=== PATIENT | male | born 1945 | race Caucasian/White ===

== ENCOUNTER 2016-12-23 13:07 | Inpatient (IN) | payer OTHER, MEDICARE ==
[~2016-12-23] VITALS: Ht 180.3 cm; Wt 96.9 kg
[2016-12-23] VITALS (7 sets, daily range): BP systolic 138–169; BP diastolic 61–79; PULSE 71–77; RESP 20; TEMP 101
[2016-12-23] MEDS ORDERED: ASPIRIN 81 MG TAB PO STA (13:11)
[2016-12-23] MEDS ORDERED: NITROGLYCERIN 2% 1 GM OINT PKT TD STA (13:11)
[2016-12-23] MEDS ORDERED: morphine 4 MG/ML VIAL IV STA (13:11)
[2016-12-23] MEDS ORDERED: ONDANSETRON 4 MG INJ IV STA ×2 (13:11→14:21)
[2016-12-23] MEDS ORDERED: NITROGLYCERIN (SL) 0.4 MG TAB SL PRN (13:30)
--- NOTE | 2016-12-23 13:56 | RADRPT ---
PROCEDURE: XR Chest. CLINICAL INDICATION: Chest pain TECHNIQUE: Single frontal view of the chest was obtained COMPARISON: None FINDINGS: The heart is enlarged. The thoracic aorta is calcified. There is mild pulmonary vascular congestion. There is no pleural effusion or pneumothorax. RPTAT: AA IMPRESSION: Moderate cardiomegaly. Mild pulmonary vascular congestion. Calcified aorta consistent with atherosclerotic disease. .Jerardo Montaño MD, MD Date Time Electronically viewed and signed by .Jerardo Montaño MD, on 12/23/2016 13:55 .S/
--- NOTE | 2016-12-23 14:01 | RADRPT ---
PROCEDURE: XR Left humerus CLINICAL INDICATION: Pain TECHNIQUE: Two AP radiographs of the left humerus were submitted COMPARISON: None FINDINGS: Osseous structures: The osseous elements appear rarefied but intact with no fracture or destructive process evident. Joint spaces: are well maintained with no significant erosion or spurring evident. There is no sig nificant joint effusion Soft tissues: Multiple gt are seen within the soft tissues at the medial distal upper arm. IMPRESSION: 1. Osteoporosis with no fracture or osseous destruction evident. 2. Multiple gt are seen within the medial distal soft tissues of the upper arm. Physician Jonn Date Time Electronically viewed and signed by Physician Jonn on 12/23/2016 14:01 /
[2016-12-23 14:03] LABS: ADD SCAN DIFF NO
[2016-12-23 14:05] LABS: ABNORMAL IP MESSAGE 1; BASOPHILS % 0.3 % (0.0-2.0); EOSINOPHILS # 0.1 10^3/ul (0.0-0.5); EOSINOPHILS % 0.7 % (0.0-7.0); HEMOGLOBIN 10.3 g/dl (14.0-18.0); LYMPHOCYTES # 0.6 10^3/ul (0.8-2.9); MEAN CORPUSCULAR HEMOGLOBIN 32.9 pg (29.0-33.0); MEAN CORPUSCULAR HGB CONC 32.2 g/dl (32.0-37.0); MEAN CORPUSCULAR VOLUME 102.2 fl (82.0-101.0); MEAN PLATELET VOLUME 9.7 fl (7.4-10.4); MONOCYTES % 8.8 % (0.0-11.0); NEUTROPHIL # 9.3 10^3/ul (1.6-7.5); NEUTROPHILS % 84.8 % (39.0-77.0); PLATELET COUNT 318 10^3/UL (140-415); RED BLOOD COUNT 3.13 10^6/ul (4.70-6.10); RED CELL DISTRIBUTION WIDTH 14.2 % (11.5-14.5)
[2016-12-23] MEDS ORDERED: CEFEPIME 2GM/50 ML (PMX) 50 ML IVPB STA (14:06)
[2016-12-23 14:22] LABS: INR 1.15; PROTIME 14.7 Sec (12.2-14.2); PT RATIO 1.1
[2016-12-23 14:23] LABS: PARTIAL THROMBOPLASTIN TIME 34.2 Sec (25.0-35.0)
[2016-12-23] MEDS ORDERED: VANCOMYCIN 1 GM (PMX) 250 ML IVPB ONE (14:30)
[2016-12-23] MEDS ORDERED: ACETAMINOPHEN 325 MG TAB PO ONE (14:30)
[2016-12-23 14:36] LABS: TROPONIN-I 0.013 ng/ml (0.00-0.12)
[2016-12-23 14:43] LABS: CK-MB 2.08 ng/ml (0.0-2.4)
[2016-12-23] MEDS ORDERED: NIT4 SL (15:10)
[2016-12-23] MEDS ORDERED: AMLO-147 PO (15:10)
[2016-12-23] MEDS ORDERED: PROP40TA4 PO (15:11)
[2016-12-23] MEDS ORDERED: ATOR40TA68 PO (15:11)
[2016-12-23] MEDS ORDERED: CLOP75TA27 PO (15:12)
[2016-12-23] MEDS ORDERED: CITA20TA11 PO (15:12)
[2016-12-23] MEDS ORDERED: SEVE800T7 PO (15:12)
[2016-12-23] MEDS ORDERED: TERA2CAP3 PO (15:13)
[2016-12-23] MEDS ORDERED: LABE200T25 PO (15:13)
[2016-12-23] MEDS ORDERED: TRAM-40 PO (15:14)
[2016-12-23] MEDS ORDERED: LANT3I SC (15:15)
--- NOTE | 2016-12-23 15:25 | HP ---
Date/Time of Note Date/Time of Note DATE: 12/23/16 TIME: 15:25 Assessment/Plan VTE Prophylaxis VTE Prophylaxis Intervention: LMWH, SCD's Assessment/Plan Assessment/Plan 71 yo M with ESRD on HD, DM2, CAD, HTN presents with acute on chronic L arm pain , vomiting, and fever. #acute on chronic L arm pain: etio unclear, no fracture on imaging ACS r/o for referred pain given cardiac risk factors tele and serial trops #fever/vomitting: concern for infectious process. pt also with minimally elevated WBCs with L shift -hold empiric abx as HDS (sp vanc/cefepime x 1 in the ED) -anuric, no evidence of PNA on CXR -blood cultures in process -also consider viral process #ESRD: nephrology helping #DM2: basal insulin + SSI #h/o CAD: cont home meds -of note, unclear why pt on 2 bb's #?depression: cont home SNRI #Prophx: SCDs and LMWH HPI/ROS Admit Date/Time Admit Date/Time Hx of Present Illness Hx obtained with help of [employer] who served as Occitan english as a second language instructor. 71 yo M with pmhx ESRD on HD, DM2 on insulin, CAD, HTN, HL who presents with 1 day of acute on chronic L arm pain and 1 day of vomiting/fevers. Pt reports he' s been having chronic pain in his L arm for the past several years however at HD today it worsened to the point where he was unable to tolerate dialysis. Also though he ate breakfast, when he got to the ER he began vomiting up everything he had eaten earlier today. Denies abd pain or cramping. No cough. Pt also found to be febrile to 102, was not febrile at HD per report. Denies chest pain or SOB ROS 10p ROS negative except as per HPI PMH/Family/Social Past Medical History PMHx as above PSHx: sp L AVF placement Soc Hx: lives in the community home meds as per EMR Exam/Review of Systems Vital Signs Vitals Vital Signs Date Time Temp Pulse Resp B/P Pulse Ox O2 Delivery O2 Flow Rate FiO2 12/23/16 13:09 102.2 88 21 154/74 95 Exam Exam uncomfortable, laying in bed, coughing at times feel diffusely warm to touch lungs clear LUE AVF with palpable thrill no mrg abd soft, ntnd no le edema moves all exts freely including L arm Labs Result Diagram: 12/23/16 1345 Medications Medications Current Medications Vancomycin HCl (Vancocin) 250 ml @ 125 mls/hr ONCE ONCE IVPB ; Start 12/23/16 at 14:30; Stop 12/23/16 at 16:29 Procedures Procedures CXR no compelling evidence of infiltrate humerus xr: no fractures MEGA HILL MD December 23, 2016 15:25
[2016-12-23] MEDS ORDERED: ONDANSETRON 4 MG INJ IV PRN (15:30)
[2016-12-23] MEDS ORDERED: ACETAMINOPHEN 325 MG TAB PO PRN (15:30)
[2016-12-23 15:34] LABS: CALCIUM 9.3 mg/dl (8.4-10.2); CREATININE 6.46 mg/dl (0.61-1.24); POTASSIUM 5.3 mmol/L (3.5-5.1)
--- NOTE | 2016-12-23 16:27 | ERA ---
ER Documentation Chief Complaint Date/Time DATE: 12/23/16 TIME: 16:26 Chief Complaint NON TRAUMATIC LEFT ARM PAIN MISSED DIALYSIS TODAY. FEVER. HPI Patient is a 71-year-old male with dialysis, diabetes, cardiac disease, and hypertension who presents with left-sided arm pain. The symptoms started this morning. He denies any fall or trauma. He said that the pain has been constant since 10 AM. He has had no treatment as of yet. He went to dialysis today but they did not dialyze him because of the pain. He does not know the name of his primary doctor. ROS All systems reviewed and are negative except as per history of present illness. Medications Home Meds Reported Medications Insulin Glargine* (Lantus*) 100 Unit/Ml Soln, 20 UNIT SC QAM, #1 VIAL 12/23/16 Tramadol Hcl* (Ultram*) 50 Mg Tablet, 50 MG PO Q8 Y for PAIN, TAB 12/23/16 Labetalol Hcl* (Labetalol Hcl*) 200 Mg Tablet, 200 MG PO BID, TAB 12/23/16 Terazosin Hcl* (Terazosin Hcl*) 2 Mg Capsule, 2 MG PO HS, CAP 12/23/16 Clopidogrel Bisulfate (Clopidogrel) 75 Mg Tablet, 75 MG PO DAILY, #30 TAB 12/23/16 Sevelamer Carbonate* (Renvela*) 800 Mg Tablet, 1.6 GM PO WITH MEALS, TAB 12/23/16 Citalopram Hydrobromide* (Celexa*) 20 Mg Tablet, 20 MG PO DAILY, #30 TAB 12/23/16 Propranolol Hcl* (Propranolol Hcl*) 40 Mg Tablet, 40 MG PO DAILY, TAB 12/23/16 Atorvastatin* (Atorvastatin*) 40 Mg Tablet, 40 MG PO QHS, #30 TAB 12/23/16 Nitroglycerin* (Nitrostat*) 0.4 Mg Tab.subl, 0.4 MG SL Q5MIN Y for CHEST PAIN, BOTTLE 12/23/16 Amlodipine Besylate* (Amlodipine Besylate*) 10 Mg Tablet, 10 MG PO DAILY, #30 TAB 12/23/16 Allergies Allergies: Coded Allergies: No Known Drug Allergies (Verified Allergy, Unknown, 12/23/16) PMhx/Soc Dialysis, DM, HTN, CVA, CAD Hx Alcohol Use: No Hx Substance Use: No Hx Tobacco Use: No Smoking Status: Never smoker FmHx Family History: No coronary disease Physical Exam Vitals Vital Signs Date Time Temp Pulse Resp B/P Pulse Ox O2 Delivery O2 Flow Rate FiO2 12/23/16 13:09 102.2 88 21 154/74 95 Physical Exam Const: Moderate distress secondary to left arm pain Head: Atraumatic Eyes: Normal Conjunctiva ENT: Normal External Ears, Nose and Mouth. Neck: Full range of motion..~ No meningismus. Resp: Clear to auscultation bilaterally Cardio: Regular rate and rhythm, no murmurs Abd: Soft, non tender, non distended. Normal bowel sounds Skin: No petechiae or rashes Back: No midline or flank tenderness Ext: Patient has a fistula in the left upper extremity without any obvious signs of infection Neur: Awake and alert, patient has left arm weakness secondary to stroke previously Psych: Normal Mood and Affect Result Diagram: 12/23/16 1345 12/23/16 1345 Results 24 hrs Laboratory Tests Test 12/23/16 13:45 12/23/16 14:25 White Blood Count 11.010^3/ul Red Blood Count 3.1310^6/ul Hemoglobin 10.3g/dl Hematocrit 32.0% Mean Corpuscular Volume 102.2fl Mean Corpuscular Hemoglobin 32.9pg Mean Corpuscular Hemoglobin Concent 32.2g/dl Red Cell Distribution Width 14.2% Platelet Count 25521^3/UL Mean Platelet Volume 9.7fl Neutrophils % 84.8% Lymphocytes % 5.0% Monocytes % 8.8% Eosinophils % 0.7% Basophils % 0.3% Nucleated Red Blood Cells % 0.0/100WBC Neutrophils # 9.310^3/ul Lymphocytes # 0.610^3/ul Monocytes # 1.010^3/ul Eosinophils # 0.110^3/ul Basophils # 0.010^3/ul Nucleated Red Blood Cells # 0.010^3/ul Prothrombin Time 14.7Sec Prothrombin Time Ratio 1.1 INR International Normalized Ratio 1.15 Activated Partial Thromboplast Time 34.2Sec Sodium Level 132mmol/L Potassium Level 5.3mmol/L Chloride Level 93mmol/L Carbon Dioxide Level 29mmol/L Anion Gap 15 Blood Urea Nitrogen 35mg/dl Creatinine 6.46mg/dl Glucose Level 123mg/dl Calcium Level 9.3mg/dl Creatine Kinase 79IU/L Creatine Kinase Index 2.6 Creatinine Kinase MB (Mass) 2.08ng/ml Troponin I 0.013ng/ml Lactic Acid Level 1.6mmol/L Current Medications Medications (Trade) Dose Ordered Sig/Stas Route PRN Reason Start Time Stop Time Status Last Admin Dose Admin Aspirin (Aspirin) 162 mg ONCE STAT PO 12/23/16 13:11 12/23/16 13:12 DC 12/23/16 15:38 Nitroglycerin (Nitroglycerin 2% Oint) 1 inch ONCE STAT TD 12/23/16 13:11 12/23/16 13:12 DC 12/23/16 13:59 Nitroglycerin (Nitroglycerin (Sl Tab) 0.4 Mg) 1 tab Q5M UP TO 3 DOSES PRN SL CHEST PAIN 12/23/16 13:30 12/23/16 13:59 Morphine Sulfate (morphine) 4 mg ONCE STAT IV 12/23/16 13:11 12/23/16 13:12 DC 12/23/16 13:58 Ondansetron HCl 4 mg 4 mg ONCE STAT IV 12/23/16 13:11 12/23/16 13:12 DC 12/23/16 13:58 Cefepime HCl 50 ml @ 100 mls/hr ONCE STAT IVPB 12/23/16 14:06 12/23/16 14:35 DC 12/23/16 15:38 Vancomycin HCl (Vancocin) 250 ml @ 125 mls/hr ONCE ONCE IVPB 12/23/16 14:30 12/23/16 16:29 12/23/16 16:07 Acetaminophen (Tylenol Tab) 650 mg ONCE ONCE PO 12/23/16 14:30 12/23/16 14:31 DC 12/23/16 15:37 Ondansetron HCl (Zofran Inj) 4 mg ONCE STAT IV 12/23/16 14:21 12/23/16 14:22 DC 12/23/16 15:37 Ondansetron HCl (Zofran Inj) 4 mg ER BRIDGE PRN IV NAUSEA AND/OR VOMITING 12/23/16 15:30 12/24/16 15:29 Acetaminophen (Tylenol Tab) 650 mg ER BRIDGE PRN PO MILD PAIN/FEVER 12/23/16 15:30 12/24/16 15:29 Procedures/MDM EKG #1 read by me: Rate/Rhythm: First-degree AV block at a rate of 91 Intervals: Prolonged TX interval Impression: First-degree AV block without ischemia EKG #2 read by me: Rate/Rhythm: First-degree AV block at a rate of 85 Intervals: Prolonged TX interval Impression: First-degree AV block without ischemia Chest x-ray shows no obvious pneumonia or pneumothorax per radiology. Patient is a 71-year-old male who presents with left arm pain. He was found to have a fever upon arrival was given Tylenol and broad-spectrum antibiotics with vancomycin and cefepime. At this point I doubt sepsis. It is unclear as to the source of his infection at this time and it is possible that it could be related to the dialysis access. There is no obvious pneumonia. I do not believe the patient makes urine at this time either. The patient was given morphine for pain as well as aspirin and nitroglycerin for potential acute coronary syndrome. The patient will be admitted to the care of Dr. Brush from the panel team. The patient will be admitted to a medical surgical bed. I spoke with Dr. Knight for consultation as the patient missed his dialysis today and will need dialysis while admitted to the hospital. Departure Diagnosis: Primary Impression: Pain of left arm Additional Impressions: Fever Anemia Hyperkalemia Condition: ZONIA Kohli MD December 23, 2016 16:27
[2016-12-23] MEDS ORDERED: traMADol 50 MG TAB PO PRN (17:30)
[2016-12-23] MEDS ORDERED: NACL 0.9% 3 ML SYG IV SCH (17:30)
[2016-12-23] MEDS ORDERED: GLUCOSE GEL 15 GRAM TUBE PO PRN ×2 (17:30)
[2016-12-23] MEDS ORDERED: NA PHOSPHATE/BIPHOS 133 ML ENEMA PR PRN (17:30)
[2016-12-23] MEDS ORDERED: GLUCOSE GEL 15 GRAM TUBE BUCCAL PRN (17:30)
[2016-12-23] MEDS ORDERED: MAGNESIUM HYDROXIDE 30ML CUP PO PRN (17:30)
[2016-12-23] MEDS ORDERED: GLUCAGON 1 MG INJ IM PRN (17:30)
[2016-12-23] MEDS ORDERED: BISACODYL (EC) 5 MG TAB PO PRN (17:30)
[2016-12-23] MEDS ORDERED: DEXTROSE 50% 50 ML SYRINGE IV PRN ×2 (17:30)
[2016-12-23] MEDS ORDERED: DOCUSATE SODIUM 100 MG CAP PO PRN (17:30)
[2016-12-23] MEDS ORDERED: BISACODYL 10 MG SUPP PR PRN (17:30)
[2016-12-23 18:46] LABS: TROPONIN-I 0.016 ng/ml (0.00-0.12)
[2016-12-23 18:55] LABS: CK-MB 1.7 ng/ml (0.0-2.4)
[2016-12-23] MEDS ORDERED: HYDROmorphONE 1 MG/ML SYG IV PRN (19:00)
[2016-12-23] MEDS: HYDROCODONE/APAP (5/325) TAB PO PRN (19:09)
[2016-12-23] MEDS: INSULIN ASPART [NOVOLOG] 3 ML PEN SC SCH ×2 (19:37→22:28)
[2016-12-23] MEDS: SEVELAMER CARBONATE 0.8 GM PKT PO SCH (19:38)
--- NOTE | 2016-12-23 19:45 | RADRPT ---
PROCEDURE: US DVT. CLINICAL INDICATION: Bilateral lower extremity pain and swelling. TECHNIQUE: Multiple longitudinal and transverse images of the bilateral lower extremity veins were obtained with gurrola scale and color Doppler imaging. 2D grayscale measurements with compression, co raturo Doppler flow, and augmentation was performed. The calf veins were interrogated as well. COMPARISON: No prior studies are available for comparison. FINDINGS: The bilateral common femoral, superficial femoral and popliteal veins are normally compressible thro ughout. Color flow demonstrates normal filling of the vessel. Normal waveforms are visualized and there is normal response to augmentation. The calf veins are visualized and are equally unremarkabl e. IMPRESSION: 1. No evidence of a deep vein thrombosis involving either lower extremity. RPTAT: HFN .Blake Mcleod MD, MD Date Time Electronically viewed and signed by .Blake Mcleod MD, MD on 12/23/2016 19:45 .N/
[2016-12-23 20:25] LABS: ALBUMIN 4.4 g/dl (3.3-4.9); ALBUMIN/GLOBULIN RATIO 1.37; BILIRUBIN,INDIRECT 0.1 mg/dl (0-1.1); BILIRUBIN,TOTAL 0.1 mg/dl (0.2-1.3); CALCIUM 8.8 mg/dl (8.4-10.2); CREATININE 6.49 mg/dl (0.61-1.24); PHOSPHORUS 3.2 mg/dl (2.5-4.9); POTASSIUM 4.9 mmol/L (3.5-5.1); TOTAL PROTEIN 7.6 g/dl (6.1-8.1)
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
[2016-12-23 23:43] LABS: TROPONIN-I 0.038 ng/ml (0.00-0.12)
[2016-12-24 00:01] VITALS: BP 133/71; PULSE 78
[2016-12-24 00:06] LABS: CK-MB 2.54 ng/ml (0.0-2.4)
[2016-12-24 00:28] VITALS: BP 142/68; PULSE 72
[2016-12-24 00:33] VITALS: BP 148/72; PULSE 75
[2016-12-24] MEDS: AL HYDROX/MG HYDROX/SIMETH 30 ML CUP PO SCH ×5 (00:47→20:59)
[2016-12-24] MEDS: ATORVASTATIN 40 MG TAB PO SCH ×2 (00:49→20:59)
[2016-12-24] MEDS: CALCIUM CARBONATE 500 MG CHEW TAB PO SCH ×5 (00:50→21:00)
[2016-12-24] MEDS: TERAZOSIN 2 MG CAP PO SCH ×2 (01:52→20:59)
[2016-12-24] MEDS: LABETALOL 200 MG TAB PO SCH ×3 (01:52→21:00)
[2016-12-24 02:23] LABS: TROPONIN-I 0.04 ng/ml (0.00-0.12)
[2016-12-24 02:24] LABS: CK-MB 2.76 ng/ml (0.0-2.4)
[2016-12-24 05:24] VITALS: BP 147/68
[2016-12-24 07:34] LABS: ADD SCAN DIFF NO
[2016-12-24 07:43] LABS: BASOPHILS % 0.3 % (0.0-2.0); EOSINOPHILS # 0.1 10^3/ul (0.0-0.5); EOSINOPHILS % 0.7 % (0.0-7.0); HEMATOCRIT 28.9 % (42.0-52.0); HEMOGLOBIN 9.2 g/dl (14.0-18.0); LYMPHOCYTES # 0.6 10^3/ul (0.8-2.9); LYMPHOCYTES % 6.3 % (15.0-51.0); MEAN CORPUSCULAR HEMOGLOBIN 32.6 pg (29.0-33.0); MEAN CORPUSCULAR HGB CONC 31.8 g/dl (32.0-37.0); MEAN CORPUSCULAR VOLUME 102.5 fl (82.0-101.0); MEAN PLATELET VOLUME 9.8 fl (7.4-10.4); MONOCYTE # 0.9 10^3/ul (0.3-0.9); MONOCYTES % 9.6 % (0.0-11.0); NEUTROPHIL # 7.9 10^3/ul (1.6-7.5); NEUTROPHILS % 82.7 % (39.0-77.0); PLATELET COUNT 303 10^3/UL (140-415); RED BLOOD COUNT 2.82 10^6/ul (4.70-6.10); RED CELL DISTRIBUTION WIDTH 14.4 % (11.5-14.5); WHITE BLOOD COUNT 9.6 10^3/ul (4.8-10.8)
[2016-12-24 07:55] VITALS: BP 147/67; RESP 20
[2016-12-24 08:04] LABS: CREATININE 5.38 mg/dl (0.61-1.24); POTASSIUM 4.2 mmol/L (3.5-5.1)
[2016-12-24] MEDS: SEVELAMER CARBONATE 0.8 GM PKT PO SCH ×3 (08:11→17:26)
[2016-12-24] MEDS: INSULIN ASPART [NOVOLOG] 3 ML PEN SC SCH ×4 (08:12→21:00)
[2016-12-24] MEDS ORDERED: ENOXAPARIN 30 MG/0.3 ML SYG SC SCH (09:00)
[2016-12-24] MEDS ORDERED: PROPRANOLOL 40 MG TAB PO SCH (09:00)
[2016-12-24] MEDS: CLOPIDOGREL 75 MG TAB PO SCH (09:03)
[2016-12-24] MEDS: CITALOPRAM 20 MG TAB PO SCH (09:03)
[2016-12-24] MEDS: AMLODIPINE 10 MG TAB PO SCH (09:04)
[2016-12-24] MEDS: INSULIN GLARGINE [LANtus] 3 ML PEN SC SCH (09:11)
--- NOTE | 2016-12-24 09:51 | CONS ---
Date/Time of Note Date/Time of Note DATE: 12/24/16 TIME: 09:43 Assessment/Plan Assessment/Plan Chief Complaint/Hosp Course 1. End-stage renal disease. The patient had a hemodialysis treatment yesterday and his labs today are better. Potassium is normal. I will order hemodialysis for tomorrow. 2. He continues to have pain in his left forearm and right lower leg with some tenderness over the right calf area. His venous Doppler test last night were both negative for DVT. He does have an elevated CPK which could indicate some myositis. 3. Fever he is now growing gram-positive cocci in chains and pairs out of his blood from blood cultures done yesterday. Must search for a source of infection. Could be his left upper arm AV fistula. Could be other area of infection. Need to rule out endocarditis will order a echocardiogram. He is on vancomycin which should be the appropriate antibiotic. 4. Right CVA with left hemiparesis in 2012 5. Hypertension 6. Hyperlipidemia Problems: Consultation Date/Type/Reason Admit Date/Time December 23, 2016 at 15:25 Initial Consult Date 24 HR Interval Summary Free Text/Dictation He continues to complain of pain in his left arm and right lower leg. He says the pain is less than it was yesterday. He is growing gram-positive cocci in chains and pairs in his blood. Exam/Review of Systems Vital Signs Vitals Vital Signs Date Time Temp Pulse Resp B/P Pulse Ox O2 Delivery O2 Flow Rate FiO2 12/24/16 07:55 99.7 79 20 147/67 96 12/24/16 01:27 Nasal Cannula 2.0 Intake and Output 12/23/16 12/23/16 12/24/16 15:00 23:00 07:00 Intake Total 620 ml Output Total 4500 ml Balance -3880 ml Exam He has some tenderness in his left forearm. He has pain on motion in his left shoulder joint. He has a vascular access in the left upper arm which has a good bruit. Constitutional: alert, oriented, well developed Respiratory: clear to auscultation, normal air movement Cardiovascular: regular rate and rhythm Gastrointestinal: soft Results Result Diagram: 12/24/16 0709 12/24/16 0709 Results 24 hrs Laboratory Tests Test 12/23/16 13:45 12/23/16 14:25 12/23/16 18:00 12/23/16 19:32 White Blood Count 11.0 H Red Blood Count 3.13 L Hemoglobin 10.3 L Hematocrit 32.0 L Mean Corpuscular Volume 102.2 H Mean Corpuscular Hemoglobin 32.9 Mean Corpuscular Hemoglobin Concent 32.2 Red Cell Distribution Width 14.2 Platelet Count 318 Mean Platelet Volume 9.7 Neutrophils % 84.8 H Lymphocytes % 5.0 L Monocytes % 8.8 Eosinophils % 0.7 Basophils % 0.3 Nucleated Red Blood Cells % 0.0 Neutrophils # 9.3 H Lymphocytes # 0.6 L Monocytes # 1.0 H Eosinophils # 0.1 Basophils # 0.0 Nucleated Red Blood Cells # 0.0 Prothrombin Time 14.7 H Prothrombin Time Ratio 1.1 INR International Normalized Ratio 1.15 Activated Partial Thromboplast Time 34.2 Sodium Level 132 L 131 L Potassium Level 5.3 H 4.9 Chloride Level 93 L 93 L Carbon Dioxide Level 29 27 Anion Gap 15 16 Blood Urea Nitrogen 35 H 37 H Creatinine 6.46 H 6.49 H Glucose Level 123 129 Calcium Level 9.3 8.8 Creatine Kinase 79 209 H Creatine Kinase Index 2.6 0.8 Creatinine Kinase MB (Mass) 2.08 1.70 Troponin I 0.013 0.016 Lactic Acid Level 1.6 0.9 Phosphorus Level 3.2 Total Bilirubin 0.1 L Direct Bilirubin 0.00 Indirect Bilirubin 0.1 Aspartate Amino Transf (AST/SGOT) 34 Alanine Aminotransferase (ALT/SGPT) 42 Alkaline Phosphatase 123 H Total Protein 7.6 Albumin 4.4 Globulin 3.20 Albumin/Globulin Ratio 1.37 Amylase Level 75 Lipase 40 Bedside Glucose 127 Test 12/23/16 22:27 12/23/16 22:28 12/24/16 01:28 12/24/16 07:09 Bedside Glucose 106 Lactic Acid Level 0.8 Creatine Kinase 411 #H 559 H Creatine Kinase Index 0.6 0.5 Creatinine Kinase MB (Mass) 2.54 H 2.76 H Troponin I 0.038 0.040 White Blood Count 9.6 Red Blood Count 2.82 L Hemoglobin 9.2 L Hematocrit 28.9 L Mean Corpuscular Volume 102.5 H Mean Corpuscular Hemoglobin 32.6 Mean Corpuscular Hemoglobin Concent 31.8 L Red Cell Distribution Width 14.4 Platelet Count 303 Mean Platelet Volume 9.8 Neutrophils % 82.7 H Lymphocytes % 6.3 L Monocytes % 9.6 Eosinophils % 0.7 Basophils % 0.3 Nucleated Red Blood Cells % 0.0 Neutrophils # 7.9 H Lymphocytes # 0.6 L Monocytes # 0.9 Eosinophils # 0.1 Basophils # 0.0 Nucleated Red Blood Cells # 0.0 Sodium Level 133 L Potassium Level 4.2 Chloride Level 93 L Carbon Dioxide Level 29 Anion Gap 15 Blood Urea Nitrogen 28 H Creatinine 5.38 H Glucose Level 103 Calcium Level 9.0 Test 12/24/16 08:01 12/24/16 09:08 Bedside Glucose 114 109 Medications Medications Current Medications Amlodipine Besylate (Norvasc) 10 mg DAILY PO Last administered on 12/24/16 09: 04; Admin Dose 10 MG; Start 12/24/16 at 09:00 Atorvastatin Calcium (Lipitor) 40 mg QHS PO Last administered on 12/24/16 00:49 ; Admin Dose 40 MG; Start 12/23/16 at 21:00 Citalopram Hydrobromide (Celexa) 20 mg DAILY PO Last administered on 12/24/16 09:03; Admin Dose 20 MG; Start 12/24/16 at 09:00 Clopidogrel Bisulfate (plaVIX) 75 mg DAILY PO Last administered on 12/24/16 09: 03; Admin Dose 75 MG; Start 12/24/16 at 09:00 Insulin Glargine (Lantus) 20 unit QAM SC Last administered on 12/24/16 09:11; Admin Dose 20 UNIT; Start 12/24/16 at 09:00 Labetalol HCl (Normodyne) 200 mg BID PO Last administered on 12/24/16 09:03; Admin Dose 200 MG; Start 12/23/16 at 21:00 Terazosin HCl (Hytrin) 2 mg HS PO Last administered on 12/24/16 01:52; Admin Dose 2 MG; Start 12/23/16 at 21:00 Tramadol HCl (Ultram) 50 mg Q8 PRN PO PAIN; Start 12/23/16 at 17:30 Docusate Sodium (Colace) 100 mg Q12H PRN PO CONSTIPATION; Start 12/23/16 at 17: 30 Magnesium Hydroxide (Milk Of Mag) 30 ml DAILY PRN PO CONSTIPATION; Start at 17:30 Bisacodyl (Dulcolax) 5 mg DAILY PRN PO CONSTIPATION; Start 12/23/16 at 17:30 Bisacodyl (Dulcolax Supp) 10 mg DAILY PRN IN CONSTIPATION; Start 12/23/16 at 17 :30 Enoxaparin Sodium (Lovenox) 30 mg DAILY SC Last administered on 12/24/16 09:06 ; Admin Dose 30 MG; Start 12/24/16 at 09:00 Al Hydrox/Mg Hydrox/Simethicone (Mag-Al Plus) 30 ml QID PO Last administered on 12/24/16 09:02; Admin Dose 30 ML; Start 12/23/16 at 21:00 Calcium Carbonate (Tums) 500 mg QID PO Last administered on 12/24/16 09:03; Admin Dose 500 MG; Start 12/23/16 at 21:00 Miscellaneous Information 1 ea NOTE XX ; Start 12/23/16 at 17:30 Glucose (Glutose) 15 gm Q15M PRN PO DECREASED GLUCOSE; Start 12/23/16 at 17:30 Glucose (Glutose) 22.5 gm Q15M PRN PO DECREASED GLUCOSE; Start 12/23/16 at 17: 30 Dextrose (D50w Syringe) 25 ml Q15M PRN IV DECREASED GLUCOSE; Start 12/23/16 at 17:30 Dextrose (D50w Syringe) 50 ml Q15M PRN IV DECREASED GLUCOSE; Start 12/23/16 at 17:30 Glucagon (Glucagen) 1 mg Q15M PRN IM DECREASED GLUCOSE; Start 12/23/16 at 17:30 Glucose (Glutose) 15 gm Q15M PRN BUCCAL DECREASED GLUCOSE; Start 12/23/16 at 17 :30 Acetaminophen/ Hydrocodone Bitart ([place] (5/325)) 1 tab Q4H PRN PO PAIN LEVEL 6 -10 Last administered on 12/23/16 19:09; Admin Dose 1 TAB; Start 12/23/16 at 19 :00 Hydromorphone HCl (Dilaudid) 0.5 mg Q4H PRN IV PAIN LEVEL 7-10 Last administered on 12/24/16 00:48; Admin Dose 0.5 MG; Start 12/23/16 at 19:00 JOSE MARIA RIOS MD Dec 24, 2016 09:51
[2016-12-24] MEDS: HYDROCODONE/APAP (5/325) TAB PO PRN ×2 (09:52→15:35)
[2016-12-24] MEDS ORDERED: VANCOMYCIN IV PER PHARMACY XX SCH (10:00)
--- NOTE | 2016-12-24 16:49 | RADRPT ---
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 Physician: JOSE MARIA RISO Quality: Good Procedures: Transthoracic echocardiogram with complete 2D, M-Mode, and doppler examination. Indications: Positive blood pressure. 2D/M Mode Doppler Measurement Value Normal Ranges Measurement Value Normal Ranges LVIDd 2D 3.7 3.5 - 5.6 cm AV Mean Yuniel 1.8 m/sec LVIDs 2D 2.4 2.1 - 4.1 cm AV Mean PG 14.0 mmHg FS 2D 34.3 % AV Peak Yuniel 2.5 m/sec LVPWd 2D 1.2 0.6 - 1.1 cm AV Peak PG 26.0 mmHg IVSd 2D 1.5 0.6 - 1.1 cm AV VTI 50.0 cm IVS/LVPW 2D 1.3 LVOT Mean Yuniel 0.9 m/sec AoR Diam 2D 3.3 2.0 - 3.7 cm LVOT Mean PG 3.0 mmHg LA/Ao 2D 1 0 - 1 LVOT Peak Yuniel 1.2 m/sec EDV 2D 50.7 cm3 LVOT Peak PG 6.0 mmHg ESV 2D 14.3 cm3 LVOT VTI 22.6 cm LA Dimen 2D 4.1 2.3 - 4.0 cm MV E Peak Yuniel 1.4 m/sec LVOT Diam 2.1 cm MV A Peak Yuniel 0.6 m/sec MV E/A 2.2 MV Decel Time 155 msec MV E/A 2.2 TR Peak Yuniel 3.4 m/sec TR Peak PG 46.0 mmHg RVSP 61.0 mmHg Findings Left Ventricle: Normal left ventricular systolic function. Normal left ventricular cavity size. Mild concentric left ventricular hypertrophy. Ejection fraction is visually estimated at 65 %. Tissue Doppler/Mitral Doppler indices are within normal limits. Right Ventricle: Normal right ventricular size. Normal right ventricular systolic function. Left Atrium: There is mild enlargement of left atrium. Right Atrium: The right atrium is normal in size. Mitral Valve: Normal appearance of the mitral valve. Mild mitral annular calcification. Trace mitral regurgitation. Aortic Valve: Mild aortic stenosis. Aortic valve Max velocity 2.53 m/sec. Max PG 26.00 mmHg. Mean PG 14.00 mmHg. Aortic valve area 1.57 cm2. Aortic cusps appear mildly calcified. Trileaflet aortic valve. No aortic regurgitation. Tricuspid Valve: Normal appearance of the tricuspid valve. Right ventricular systolic pressure is consistent with moderate pulmonary hypertension. Estimated peak PA systolic pressure 55 mmHg. There is moderate tricuspid regurgitation. Pulmonic Valve: Pulmonic valve not well visualized. There is trace pulmonic regurgitation. Pericardium: Normal pericardium with no significant pericardial effusion. Aorta: Normal aortic root. IVC: Dilated IVC with respiratory collapse consistent with elevated right atrial pressure. Conclusions Normal left ventricular systolic function. Normal left ventricular cavity size. Mild concentric left ventricular hypertrophy. Ejection fraction is visually estimated at 65 %. Tissue Doppler/Mitral Doppler indices are within normal limits. Normal right ventricular size. Normal right ventricular systolic function. There is mild enlargement of left atrium. Mild aortic stenosis. Aortic valve Max velocity 2.53 m/sec. Max PG 26.00 mmHg. Mean PG 14.00 mmHg. Aortic valve area 1.57 cm2. Aortic cusps appear mildly calcified. Trileaflet aortic valve. No aortic regurgitation. Normal appearance of the tricuspid valve. Right ventricular systolic pressure is consistent with moderate pulmonary hypertension. Estimated peak PA systolic pressure 55 mmHg. There is moderate tricuspid regurgitation. Normal pericardium with no significant pericardial effusion. Dilated IVC with respiratory collapse consistent with elevated right atrial pressure. No Vegetation, masses, or thrombi seen. Electronically Signed By: Alexi Pratt 24-Dec-2016 16:48:55 -0700 Patient Name: RANDY LUNA Study Date: 24-Dec-2016 [id number]
--- NOTE | 2016-12-24 17:33 | PN ---
Date/Time of Note Date/Time of Note DATE: 12/24/16 TIME: 17:30 Assessment/Plan VTE Prophylaxis VTE Prophylaxis Intervention: SCD's Lines/Catheters IV Catheter Type (from Nrsg): Saline Lock Assessment/Plan Assessment/Plan . Left forearm pain, US neg for DVT SIRS , blood cx grew gram positic cocci ESRD on HD HTN HL Plan: continue current IV abx, will follow up on Final blood cx results mimi Joy following BP stable Plan for HD tomorrow Subjective 24 Hr Interval Summary Free Text/Dictation blood culture positive, Bp stable, s/p HD yesterday, plan for HD tomorrow Exam/Review of Systems Vital Signs Vitals Vital Signs Date Time Temp Pulse Resp B/P Pulse Ox O2 Delivery O2 Flow Rate FiO2 12/24/16 10:47 Nasal Cannula 2.0 12/24/16 07:55 99.7 79 20 147/67 96 Intake and Output 12/23/16 12/23/16 12/24/16 15:00 23:00 07:00 Intake Total 620 ml Output Total 4500 ml Balance -3880 ml Exam Constitutional: alert Head: normocephalic Neck: supple Respiratory: clear to auscultation, diminished breath sounds Cardiovascular: regular rate and rhythm Gastrointestinal: non-tender, soft Musculoskeletal: other (left forearm tenderness ) Extremities: normal pulses Neurological: TELEGRAPH AND TELETYPE OPERATOR II-XII intact Results Result Diagram: 12/24/16 0709 12/24/16 0709 Results 24 hrs Laboratory Tests Test 12/23/16 18:00 12/23/16 19:32 12/23/16 22:27 12/23/16 22:28 Sodium Level 131 L Potassium Level 4.9 Chloride Level 93 L Carbon Dioxide Level 27 Anion Gap 16 Blood Urea Nitrogen 37 H Creatinine 6.49 H Glucose Level 129 Lactic Acid Level 0.9 0.8 Calcium Level 8.8 Phosphorus Level 3.2 Total Bilirubin 0.1 L Direct Bilirubin 0.00 Indirect Bilirubin 0.1 Aspartate Amino Transf (AST/SGOT) 34 Alanine Aminotransferase (ALT/SGPT) 42 Alkaline Phosphatase 123 H Creatine Kinase 209 H 411 #H Creatine Kinase Index 0.8 0.6 Creatinine Kinase MB (Mass) 1.70 2.54 H Troponin I 0.016 0.038 Total Protein 7.6 Albumin 4.4 Globulin 3.20 Albumin/Globulin Ratio 1.37 Amylase Level 75 Lipase 40 Bedside Glucose 127 106 Test 12/24/16 01:28 12/24/16 07:09 12/24/16 08:01 12/24/16 09:08 Creatine Kinase 559 H Creatine Kinase Index 0.5 Creatinine Kinase MB (Mass) 2.76 H Troponin I 0.040 White Blood Count 9.6 Red Blood Count 2.82 L Hemoglobin 9.2 L Hematocrit 28.9 L Mean Corpuscular Volume 102.5 H Mean Corpuscular Hemoglobin 32.6 Mean Corpuscular Hemoglobin Concent 31.8 L Red Cell Distribution Width 14.4 Platelet Count 303 Mean Platelet Volume 9.8 Neutrophils % 82.7 H Lymphocytes % 6.3 L Monocytes % 9.6 Eosinophils % 0.7 Basophils % 0.3 Nucleated Red Blood Cells % 0.0 Neutrophils # 7.9 H Lymphocytes # 0.6 L Monocytes # 0.9 Eosinophils # 0.1 Basophils # 0.0 Nucleated Red Blood Cells # 0.0 Sodium Level 133 L Potassium Level 4.2 Chloride Level 93 L Carbon Dioxide Level 29 Anion Gap 15 Blood Urea Nitrogen 28 H Creatinine 5.38 H Glucose Level 103 Calcium Level 9.0 Bedside Glucose 114 109 Test 12/24/16 11:50 12/24/16 17:25 Bedside Glucose 113 125 Medications Medications Current Medications Amlodipine Besylate (Norvasc) 10 mg DAILY PO Last administered on 12/24/16 09: 04; Admin Dose 10 MG; Start 12/24/16 at 09:00 Atorvastatin Calcium (Lipitor) 40 mg QHS PO Last administered on 12/24/16 00:49 ; Admin Dose 40 MG; Start 12/23/16 at 21:00 Citalopram Hydrobromide (Celexa) 20 mg DAILY PO Last administered on 12/24/16 09:03; Admin Dose 20 MG; Start 12/24/16 at 09:00 Clopidogrel Bisulfate (plaVIX) 75 mg DAILY PO Last administered on 12/24/16 09: 03; Admin Dose 75 MG; Start 12/24/16 at 09:00 Insulin Glargine (Lantus) 20 unit QAM SC Last administered on 12/24/16 09:11; Admin Dose 20 UNIT; Start 12/24/16 at 09:00 Labetalol HCl (Normodyne) 200 mg BID PO Last administered on 12/24/16 09:03; Admin Dose 200 MG; Start 12/23/16 at 21:00 Terazosin HCl (Hytrin) 2 mg HS PO Last administered on 12/24/16 01:52; Admin Dose 2 MG; Start 12/23/16 at 21:00 Tramadol HCl (Ultram) 50 mg Q8 PRN PO PAIN; Start 12/23/16 at 17:30 Docusate Sodium (Colace) 100 mg Q12H PRN PO CONSTIPATION; Start 12/23/16 at 17: 30 Magnesium Hydroxide (Milk Of Mag) 30 ml DAILY PRN PO CONSTIPATION; Start at 17:30 Bisacodyl (Dulcolax) 5 mg DAILY PRN PO CONSTIPATION; Start 12/23/16 at 17:30 Bisacodyl (Dulcolax Supp) 10 mg DAILY PRN [place] CONSTIPATION; Start 12/23/16 at 17 :30 Al Hydrox/Mg Hydrox/Simethicone (Mag-Al Plus) 30 ml QID PO Last administered on 12/24/16 17:26; Admin Dose 30 ML; Start 12/23/16 at 21:00 Calcium Carbonate (Tums) 500 mg QID PO Last administered on 12/24/16 17:26; Admin Dose 500 MG; Start 12/23/16 at 21:00 Miscellaneous Information 1 ea NOTE XX ; Start 12/23/16 at 17:30 Glucose (Glutose) 15 gm Q15M PRN PO DECREASED GLUCOSE; Start 12/23/16 at 17:30 Glucose (Glutose) 22.5 gm Q15M PRN PO DECREASED GLUCOSE; Start 12/23/16 at 17: 30 Dextrose (D50w Syringe) 25 ml Q15M PRN IV DECREASED GLUCOSE; Start 12/23/16 at 17:30 Dextrose (D50w Syringe) 50 ml Q15M PRN IV DECREASED GLUCOSE; Start 12/23/16 at 17:30 Glucagon (Glucagen) 1 mg Q15M PRN IM DECREASED GLUCOSE; Start 12/23/16 at 17:30 Glucose (Glutose) 15 gm Q15M PRN BUCCAL DECREASED GLUCOSE; Start 12/23/16 at 17 :30 Acetaminophen/ Hydrocodone Bitart ([place] (5/325)) 1 tab Q4H PRN PO PAIN LEVEL 6 -10 Last administered on 12/24/16 15:35; Admin Dose 1 TAB; Start 12/23/16 at 19: 00 Hydromorphone HCl (Dilaudid) 0.5 mg Q4H PRN IV PAIN LEVEL 7-10 Last administered on 12/24/16 00:48; Admin Dose 0.5 MG; Start 12/23/16 at 19:00 Vancomycin HCl (Vanco Iv Per Pharmacy) PER PHARMACY DOSING NOTE XX ; Start at 10:00 Heparin Sodium (Porcine) (Heparin (5000 Units/0.5 ml)) 5,000 unit Q12 SC ; Start 12/24/16 at 21:00 Miscellaneous Information (*Rx Drug Level Order Reminder*) RANDOM VANCO LEVEL... ONCE ONCE XX ; Start 12/25/16 at 05:00; Stop 12/25/16 at 05:01 ANAMIKA HO MD Dec 24, 2016 17:33
[2016-12-24 19:39] VITALS: BP 129/64; RESP 20
[2016-12-24] MEDS: HEPARIN 5,000 UNIT/0.5 ML VIAL SC SCH (21:08)
[2016-12-25] VITALS (10 sets, daily range): BP systolic 131–149; BP diastolic 63–77; PULSE 66–68; RESP 18–20
[2016-12-25 05:35] LABS: ADD SCAN DIFF NO
[2016-12-25 05:58] LABS: BASOPHILS % 0.4 % (0.0-2.0); EOSINOPHILS # 0.1 10^3/ul (0.0-0.5); EOSINOPHILS % 1.3 % (0.0-7.0); HEMATOCRIT 26.8 % (42.0-52.0); HEMOGLOBIN 8.6 g/dl (14.0-18.0); LYMPHOCYTES # 1.2 10^3/ul (0.8-2.9); LYMPHOCYTES % 10.7 % (15.0-51.0); MEAN CORPUSCULAR HEMOGLOBIN 32.3 pg (29.0-33.0); MEAN CORPUSCULAR HGB CONC 32.1 g/dl (32.0-37.0); MEAN CORPUSCULAR VOLUME 100.8 fl (82.0-101.0); MEAN PLATELET VOLUME 9.9 fl (7.4-10.4); MONOCYTE # 1.1 10^3/ul (0.3-0.9); NEUTROPHIL # 8.7 10^3/ul (1.6-7.5); NEUTROPHILS % 77.2 % (39.0-77.0); PLATELET COUNT 294 10^3/UL (140-415); RED BLOOD COUNT 2.66 10^6/ul (4.70-6.10); RED CELL DISTRIBUTION WIDTH 14.5 % (11.5-14.5); WHITE BLOOD COUNT 11.2 10^3/ul (4.8-10.8)
[2016-12-25 06:18] LABS: ALBUMIN 4.2 g/dl (3.3-4.9); ALBUMIN/GLOBULIN RATIO 1.44; BILIRUBIN,INDIRECT 0.1 mg/dl (0-1.1); BILIRUBIN,TOTAL 0.1 mg/dl (0.2-1.3); CALCIUM 8.7 mg/dl (8.4-10.2); CREATININE 7.48 mg/dl (0.61-1.24); POTASSIUM 4.5 mmol/L (3.5-5.1); TOTAL PROTEIN 7.1 g/dl (6.1-8.1)
[2016-12-25 06:20] LABS: TROPONIN-I 0.052 ng/ml (0.00-0.12)
[2016-12-25 06:25] LABS: CK-MB 1.71 ng/ml (0.0-2.4)
[2016-12-25 06:33] LABS: C-REACTIVE PROTEIN 23.2 mg/dl (0.0-0.9)
[2016-12-25] MEDS: INSULIN ASPART [NOVOLOG] 3 ML PEN SC SCH ×4 (08:08→20:29)
[2016-12-25] MEDS: SEVELAMER CARBONATE 0.8 GM PKT PO SCH ×3 (09:06→17:24)
[2016-12-25] MEDS: CITALOPRAM 20 MG TAB PO SCH (09:06)
[2016-12-25] MEDS: CALCIUM CARBONATE 500 MG CHEW TAB PO SCH ×4 (09:06→20:29)
[2016-12-25] MEDS: CLOPIDOGREL 75 MG TAB PO SCH (09:06)
[2016-12-25] MEDS: AL HYDROX/MG HYDROX/SIMETH 30 ML CUP PO SCH ×4 (09:06→20:28)
[2016-12-25] MEDS: HEPARIN 5,000 UNIT/0.5 ML VIAL SC SCH ×2 (09:26→20:36)
[2016-12-25] MEDS: INSULIN GLARGINE [LANtus] 3 ML PEN SC SCH (09:26)
[2016-12-25] MEDS: AMLODIPINE 10 MG TAB PO SCH (12:11)
[2016-12-25] MEDS: LABETALOL 200 MG TAB PO SCH ×2 (12:11→20:29)
--- NOTE | 2016-12-25 14:03 | CONS ---
Date/Time of Note Date/Time of Note DATE: 12/25/16 TIME: 13:56 Assessment/Plan Assessment/Plan Chief Complaint/Hosp Course 1. End-stage renal disease. The patient had a hemodialysis treatment today and 3.7 L of fluid were removed. Potassium is normal. His next dialysis should be Wednesday. His routine hemodialysis schedule is Wednesday. 2. He he has much less pain in his left forearm and his right lower leg. His venous Dopplers of his leg were both negative for DVT. He does have an elevated CPK which could indicate some myositis. 3. Fever he is now growing staph and strep in his blood from blood cultures done 2 days ago on admission. Must search for a source of infection. Could be his left upper arm AV fistula. Could be other area of infection. Need to rule out endocarditis will order a echocardiogram. He is on vancomycin which should be the appropriate antibiotic. ID consult has been ordered. 4. Right CVA with left hemiparesis in 2012 5. Hypertension 6. Hyperlipidemia 7. Anemia, I will start Epogen. 8. Hiccups, I will start baclofen as needed. Problems: Consultation Date/Type/Reason Admit Date/Time December 23, 2016 at 15:25 24 HR Interval Summary Free Text/Dictation He complains of hiccups. He is otherwise feeling better. He does have staph growing from his blood and 1 culture also has strep. Constitutional: improved Exam/Review of Systems Vital Signs Vitals Vital Signs Date Time Temp Pulse Resp B/P Pulse Ox O2 Delivery O2 Flow Rate FiO2 12/25/16 12:10 67 147/67 12/25/16 11:20 18 12/25/16 08:03 98.0 93 12/25/16 00:57 Nasal Cannula 2.0 Intake and Output 12/24/16 12/24/16 12/25/16 15:00 23:00 07:00 Intake Total 1500 ml 200 ml Output Total 200 ml 200 ml Balance 1300 ml 0 ml Exam Constitutional: alert, frail, oriented Respiratory: clear to auscultation, normal air movement Cardiovascular: regular rate and rhythm Gastrointestinal: soft Musculoskeletal: nl extremities to inspection Results Result Diagram: 12/25/16 0455 12/25/16 0455 Results 24 hrs Laboratory Tests Test 12/24/16 17:25 12/24/16 21:03 12/25/16 04:54 12/25/16 04:55 Bedside Glucose 125 160 Creatine Kinase 449 H Creatine Kinase Index 0.4 Creatinine Kinase MB (Mass) 1.71 Troponin I 0.052 White Blood Count 11.2 H Red Blood Count 2.66 L Hemoglobin 8.6 L Hematocrit 26.8 L Mean Corpuscular Volume 100.8 Mean Corpuscular Hemoglobin 32.3 Mean Corpuscular Hemoglobin Concent 32.1 Red Cell Distribution Width 14.5 Platelet Count 294 Mean Platelet Volume 9.9 Neutrophils % 77.2 H Lymphocytes % 10.7 L Monocytes % 10.0 Eosinophils % 1.3 Basophils % 0.4 Nucleated Red Blood Cells % 0.0 Neutrophils # 8.7 H Lymphocytes # 1.2 Monocytes # 1.1 H Eosinophils # 0.1 Basophils # 0.0 Nucleated Red Blood Cells # 0.0 Erythrocyte Sedimentation Rate 103 H Sodium Level 131 L Potassium Level 4.5 Chloride Level 88 L Carbon Dioxide Level 30 Anion Gap 18 H Blood Urea Nitrogen 44 #H Creatinine 7.48 #H Glucose Level 113 Calcium Level 8.7 Total Bilirubin 0.1 L Direct Bilirubin 0.00 Indirect Bilirubin 0.1 Aspartate Amino Transf (AST/SGOT) 37 Alanine Aminotransferase (ALT/SGPT) 40 Alkaline Phosphatase 119 C-Reactive Protein 23.2 H Total Protein 7.1 Albumin 4.2 Globulin 2.90 Albumin/Globulin Ratio 1.44 Random Vancomycin Level 7.7 Test 12/25/16 08:03 12/25/16 12:00 Bedside Glucose 112 173 Medications Medications Current Medications Amlodipine Besylate (Norvasc) 10 mg DAILY PO Last administered on 12/25/16 12: 11; Admin Dose 10 MG; Start 12/24/16 at 09:00 Atorvastatin Calcium (Lipitor) 40 mg QHS PO Last administered on 12/24/16 20:59 ; Admin Dose 40 MG; Start 12/23/16 at 21:00 Citalopram Hydrobromide (Celexa) 20 mg DAILY PO Last administered on 12/25/16 09:06; Admin Dose 20 MG; Start 12/24/16 at 09:00 Clopidogrel Bisulfate (plaVIX) 75 mg DAILY PO Last administered on 12/25/16 09: 06; Admin Dose 75 MG; Start 12/24/16 at 09:00 Insulin Glargine (Lantus) 20 unit QAM SC Last administered on 12/25/16 09:26; Admin Dose 20 UNIT; Start 12/24/16 at 09:00 Labetalol HCl (Normodyne) 200 mg BID PO Last administered on 12/25/16 12:11; Admin Dose 200 MG; Start 12/23/16 at 21:00 Terazosin HCl (Hytrin) 2 mg HS PO Last administered on 12/24/16 20:59; Admin Dose 2 MG; Start 12/23/16 at 21:00 Tramadol HCl (Ultram) 50 mg Q8 PRN PO PAIN; Start 12/23/16 at 17:30 Docusate Sodium (Colace) 100 mg Q12H PRN PO CONSTIPATION; Start 12/23/16 at 17: 30 Magnesium Hydroxide (Milk Of Mag) 30 ml DAILY PRN PO CONSTIPATION; Start at 17:30 Bisacodyl (Dulcolax) 5 mg DAILY PRN PO CONSTIPATION; Start 12/23/16 at 17:30 Bisacodyl (Dulcolax Supp) 10 mg DAILY PRN [place] CONSTIPATION; Start 12/23/16 at 17 :30 Al Hydrox/Mg Hydrox/Simethicone (Mag-Al Plus) 30 ml QID PO Last administered on 12/25/16 13:35; Admin Dose 30 ML; Start 12/23/16 at 21:00 Calcium Carbonate (Tums) 500 mg QID PO Last administered on 12/25/16 12:11; Admin Dose 500 MG; Start 12/23/16 at 21:00 Miscellaneous Information 1 ea NOTE XX ; Start 12/23/16 at 17:30 Glucose (Glutose) 15 gm Q15M PRN PO DECREASED GLUCOSE; Start 12/23/16 at 17:30 Glucose (Glutose) 22.5 gm Q15M PRN PO DECREASED GLUCOSE; Start 12/23/16 at 17: 30 Dextrose (D50w Syringe) 25 ml Q15M PRN IV DECREASED GLUCOSE; Start 12/23/16 at 17:30 Dextrose (D50w Syringe) 50 ml Q15M PRN IV DECREASED GLUCOSE; Start 12/23/16 at 17:30 Glucagon (Glucagen) 1 mg Q15M PRN IM DECREASED GLUCOSE; Start 12/23/16 at 17:30 Glucose (Glutose) 15 gm Q15M PRN BUCCAL DECREASED GLUCOSE; Start 12/23/16 at 17 :30 Acetaminophen/ Hydrocodone Bitart ([place] (5/325)) 1 tab Q4H PRN PO PAIN LEVEL 6 -10 Last administered on 12/24/16 15:35; Admin Dose 1 TAB; Start 12/23/16 at 19: 00 Hydromorphone HCl (Dilaudid) 0.5 mg Q4H PRN IV PAIN LEVEL 7-10 Last administered on 12/24/16 00:48; Admin Dose 0.5 MG; Start 12/23/16 at 19:00 Vancomycin HCl (Vanco Iv Per Pharmacy) PER PHARMACY DOSING NOTE XX ; Start at 10:00 Heparin Sodium (Porcine) (Heparin (5000 Units/0.5 ml)) 5,000 unit Q12 SC Last administered on 12/25/16 09:26; Admin Dose 5,000 UNIT; Start 12/24/16 at 21:00 JOSE MARIA RIOS MD Dec 25, 2016 14:03
--- NOTE | 2016-12-25 15:33 | CONS ---
DATE OF ADMISSION: 12/23/2016 DATE OF CONSULTATION: 12/25/2016 TYPE OF CONSULTATION: Infectious Disease. REASON FOR CONSULTATION: Antibiotic management since. HISTORY OF PRESENT ILLNESS: Khanh Piedra is a 71-year-old male with numerous problems who presents with 1 day of chronic left arm pain and 1 day of vomiting and fever. His past problems in clude: 1. End-stage renal disease on hemodialysis. 2. Adult-onset diabetes mellitus. 3. Coronary artery disease. 4. Hypertension. 5. Hyperlipidemia. 6. Depression. Acutely, the patient has been having chronic pain in his left arm for the past several years; elise fritz, hemodialysis today worsened to the point where he was unable to tolerate the dialysis. He began to have nausea and vomiting of his breakfast. Denies abdominal pain or cramping. He was febrile to 102. He has a left upper extremity AV fistula with a palpable thrill. PAST MEDICAL HISTORY: Operations as outlined. PAST SURGICAL HISTORY: Status post left AV fistula placement. SOCIAL HISTORY: He lives in the community home. FAMILY HISTORY: Noncontributory. ALLERGIES: NONE TO PENICILLIN, SULFA, OR FOODS. MEDICATIONS: Per chart. REVIEW OF SYSTEMS: As per HPI. PHYSICAL EXAMINATION: GENERAL: The patient is an uncomfortable male who is awake, responsive, in no acute distre ss. VITAL SIGNS: Stable. His T-max 102. SKIN: Without generalized rash. HEENT: Within normal limits. NECK: Supple. LYMPH NODES: None palpable. CHEST: Decreased breath sounds at the bases. HEART: Without murmur or gallop. ABDOMEN: Soft, nontender, without organosplenomegaly or masses. EXTREMITIES: Without cyanosis, clubbing, or edema. Left upper extremity AV fistula with palpable t hrill. RECTAL AND GENITAL NERVES: Deferred. NEUROLOGICAL: No focal neurological abnormality. IMAGING: An x-ray of the humerus shows osteoporosis with no fractures. Multiple gt are seen w ithin the medial distal soft tissues of the upper arm. Chest x-ray shows moderate cardiomegaly, mild pulmonary vascular congestion, and calcified aorta con sistent with arteriosclerotic cardiovascular disease. No evidence of deep vein thrombophlebitis. MICROBIOLOGY: Blood cultures are growing staph species from 2 sets of blood cultures. ANCILLARY LABORATORY DATA: White count today is 11.2, and the patient is on vancomycin. IMPRESSION AND PLAN: The fistula may be infected. Fortunately, there are no foreign bodies in plac e. The patient was seen in nephrology by Dr. Knight. endocarditis has been brought up, a nd an echocardiogram has been ordered. He also was seen by Dr. Vni Christie, hospitalist and also pv design engineer, who noted left forearm pain, SIRS, end-stage renal disease. I believe he thinks that the fistula is infected as well. I will dictate my findings to the hospitalist and [facility]. Dictated By: KALYN VANN MD, JD/MICHELLE Conf#: [id number] DID#: [id number]
--- NOTE | 2016-12-25 16:55 | PN ---
Date/Time of Note Date/Time of Note DATE: 12/25/16 TIME: 16:44 Assessment/Plan VTE Prophylaxis VTE Prophylaxis Intervention: SCD's Lines/Catheters IV Catheter Type (from Nrsg): Saline Lock Assessment/Plan Assessment/Plan . Left forearm pain, US neg for DVT SIRS , blood cx grew gram positic cocci ESRD on HD HTN HL Plan: IV abx vancomycin, Blood cx 2/2 positive for staph aureus, repeat blood Cx x 2 tomorrow AM ID consult to see pt [email or web address] following BP stable Plan for HD today Subjective 24 Hr Interval Summary Free Text/Dictation blood culture 2/2 positive, Afebrile, BP stable Exam/Review of Systems Vital Signs Vitals Vital Signs Date Time Temp Pulse Resp B/P Pulse Ox O2 Delivery O2 Flow Rate FiO2 12/25/16 12:10 67 147/67 12/25/16 11:20 18 12/25/16 08:03 98.0 93 12/25/16 00:57 Nasal Cannula 2.0 Intake and Output 12/24/16 12/24/16 12/25/16 15:00 23:00 07:00 Intake Total 1500 ml 200 ml Output Total 200 ml 200 ml Balance 1300 ml 0 ml Exam Constitutional: alert Head: normocephalic Neck: supple Respiratory: clear to auscultation, diminished breath sounds Cardiovascular: regular rate and rhythm Gastrointestinal: non-tender, soft Musculoskeletal: other (left forearm tenderness ) Extremities: normal pulses Neurological: MANAGER TRUCK II-XII intact Results Result Diagram: 12/25/16 0455 12/25/16 0455 Results 24 hrs Laboratory Tests Test 12/24/16 17:25 12/24/16 21:03 12/25/16 04:54 12/25/16 04:55 Bedside Glucose 125 160 Creatine Kinase 449 H Creatine Kinase Index 0.4 Creatinine Kinase MB (Mass) 1.71 Troponin I 0.052 White Blood Count 11.2 H Red Blood Count 2.66 L Hemoglobin 8.6 L Hematocrit 26.8 L Mean Corpuscular Volume 100.8 Mean Corpuscular Hemoglobin 32.3 Mean Corpuscular Hemoglobin Concent 32.1 Red Cell Distribution Width 14.5 Platelet Count 294 Mean Platelet Volume 9.9 Neutrophils % 77.2 H Lymphocytes % 10.7 L Monocytes % 10.0 Eosinophils % 1.3 Basophils % 0.4 Nucleated Red Blood Cells % 0.0 Neutrophils # 8.7 H Lymphocytes # 1.2 Monocytes # 1.1 H Eosinophils # 0.1 Basophils # 0.0 Nucleated Red Blood Cells # 0.0 Erythrocyte Sedimentation Rate 103 H Sodium Level 131 L Potassium Level 4.5 Chloride Level 88 L Carbon Dioxide Level 30 Anion Gap 18 H Blood Urea Nitrogen 44 #H Creatinine 7.48 #H Glucose Level 113 Calcium Level 8.7 Total Bilirubin 0.1 L Direct Bilirubin 0.00 Indirect Bilirubin 0.1 Aspartate Amino Transf (AST/SGOT) 37 Alanine Aminotransferase (ALT/SGPT) 40 Alkaline Phosphatase 119 C-Reactive Protein 23.2 H Total Protein 7.1 Albumin 4.2 Globulin 2.90 Albumin/Globulin Ratio 1.44 Random Vancomycin Level 7.7 Test 12/25/16 08:03 12/25/16 12:00 Bedside Glucose 112 173 Medications Medications Current Medications Amlodipine Besylate (Norvasc) 10 mg DAILY PO Last administered on 12/25/16 12: 11; Admin Dose 10 MG; Start 12/24/16 at 09:00 Atorvastatin Calcium (Lipitor) 40 mg QHS PO Last administered on 12/24/16 20:59 ; Admin Dose 40 MG; Start 12/23/16 at 21:00 Citalopram Hydrobromide (Celexa) 20 mg DAILY PO Last administered on 12/25/16 09:06; Admin Dose 20 MG; Start 12/24/16 at 09:00 Clopidogrel Bisulfate (plaVIX) 75 mg DAILY PO Last administered on 12/25/16 09: 06; Admin Dose 75 MG; Start 12/24/16 at 09:00 Insulin Glargine (Lantus) 20 unit QAM SC Last administered on 12/25/16 09:26; Admin Dose 20 UNIT; Start 12/24/16 at 09:00 Labetalol HCl (Normodyne) 200 mg BID PO Last administered on 12/25/16 12:11; Admin Dose 200 MG; Start 12/23/16 at 21:00 Terazosin HCl (Hytrin) 2 mg HS PO Last administered on 12/24/16 20:59; Admin Dose 2 MG; Start 12/23/16 at 21:00 Tramadol HCl (Ultram) 50 mg Q8 PRN PO PAIN; Start 12/23/16 at 17:30 Docusate Sodium (Colace) 100 mg Q12H PRN PO CONSTIPATION; Start 12/23/16 at 17: 30 Magnesium Hydroxide (Milk Of Mag) 30 ml DAILY PRN PO CONSTIPATION; Start at 17:30 Bisacodyl (Dulcolax) 5 mg DAILY PRN PO CONSTIPATION; Start 12/23/16 at 17:30 Bisacodyl (Dulcolax Supp) 10 mg DAILY PRN [place] CONSTIPATION; Start 12/23/16 at 17 :30 Al Hydrox/Mg Hydrox/Simethicone (Mag-Al Plus) 30 ml QID PO Last administered on 12/25/16 13:35; Admin Dose 30 ML; Start 12/23/16 at 21:00 Calcium Carbonate (Tums) 500 mg QID PO Last administered on 12/25/16 12:11; Admin Dose 500 MG; Start 12/23/16 at 21:00 Miscellaneous Information 1 ea NOTE XX ; Start 12/23/16 at 17:30 Glucose (Glutose) 15 gm Q15M PRN PO DECREASED GLUCOSE; Start 12/23/16 at 17:30 Glucose (Glutose) 22.5 gm Q15M PRN PO DECREASED GLUCOSE; Start 12/23/16 at 17: 30 Dextrose (D50w Syringe) 25 ml Q15M PRN IV DECREASED GLUCOSE; Start 12/23/16 at 17:30 Dextrose (D50w Syringe) 50 ml Q15M PRN IV DECREASED GLUCOSE; Start 12/23/16 at 17:30 Glucagon (Glucagen) 1 mg Q15M PRN IM DECREASED GLUCOSE; Start 12/23/16 at 17:30 Glucose (Glutose) 15 gm Q15M PRN BUCCAL DECREASED GLUCOSE; Start 12/23/16 at 17 :30 Acetaminophen/ Hydrocodone Bitart ([place] (5/325)) 1 tab Q4H PRN PO PAIN LEVEL 6 -10 Last administered on 12/24/16 15:35; Admin Dose 1 TAB; Start 12/23/16 at 19: 00 Hydromorphone HCl (Dilaudid) 0.5 mg Q4H PRN IV PAIN LEVEL 7-10 Last administered on 12/24/16 00:48; Admin Dose 0.5 MG; Start 12/23/16 at 19:00 Vancomycin HCl (Vanco Iv Per Pharmacy) PER PHARMACY DOSING NOTE XX ; Start at 10:00 Heparin Sodium (Porcine) (Heparin (5000 Units/0.5 ml)) 5,000 unit Q12 SC Last administered on 12/25/16t 09:26; Admin Dose 5,000 UNIT; Start 12/24/16 at 21:00 Epoetin Spencer (Epogen (Esrd)) 10,000 units MoWeFr@17 SC ; Start 12/25/16 at 17:00 Baclofen (Lioresal) 5 mg TID PRN PO HICCUPS; Start 12/25/16 at 14:00 ANAMIKA HO MD Dec 25, 2016 16:54
[2016-12-25] MEDS: BACLOFEN 10 MG TAB PO PRN (17:24)
[2016-12-25] MEDS: EPOETIN 10000 UNITS/1 ML INJ (ESRD) SC SCH (17:26)
[2016-12-25] MEDS ORDERED: VANCOMYCIN 1.25 GM in SOD CHLORIDE 0.9% 250 ML IVPB SCH (19:30)
[2016-12-25] MEDS: ATORVASTATIN 40 MG TAB PO SCH (20:27)
[2016-12-25] MEDS: TERAZOSIN 2 MG CAP PO SCH (20:28)
[2016-12-26 05:57] LABS: ADD SCAN DIFF NO
[2016-12-26 06:02] LABS: BASOPHILS % 0.3 % (0.0-2.0); EOSINOPHILS # 0.2 10^3/ul (0.0-0.5); EOSINOPHILS % 1.5 % (0.0-7.0); HEMATOCRIT 28.2 % (42.0-52.0); HEMOGLOBIN 8.7 g/dl (14.0-18.0); LYMPHOCYTES % 9.4 % (15.0-51.0); MEAN CORPUSCULAR HEMOGLOBIN 31.6 pg (29.0-33.0); MEAN CORPUSCULAR HGB CONC 30.9 g/dl (32.0-37.0); MEAN CORPUSCULAR VOLUME 102.5 fl (82.0-101.0); MEAN PLATELET VOLUME 9.7 fl (7.4-10.4); MONOCYTE # 1.4 10^3/ul (0.3-0.9); MONOCYTES % 13.3 % (0.0-11.0); NEUTROPHIL # 7.8 10^3/ul (1.6-7.5); NEUTROPHILS % 75.1 % (39.0-77.0); PLATELET COUNT 293 10^3/UL (140-415); RED BLOOD COUNT 2.75 10^6/ul (4.70-6.10); RED CELL DISTRIBUTION WIDTH 14.6 % (11.5-14.5); WHITE BLOOD COUNT 10.4 10^3/ul (4.8-10.8)
[2016-12-26 06:29] LABS: CALCIUM 8.9 mg/dl (8.4-10.2); CREATININE 5.86 mg/dl (0.61-1.24); POTASSIUM 4.7 mmol/L (3.5-5.1)
[2016-12-26 07:13] LABS: TROPONIN-I 0.028 ng/ml (0.00-0.12)
[2016-12-26 07:20] LABS: CK-MB 1.72 ng/ml (0.0-2.4)
[2016-12-26 07:41] VITALS: BP 140/65; RESP 20
[2016-12-26] MEDS: INSULIN ASPART [NOVOLOG] 3 ML PEN SC SCH ×4 (08:12→21:00)
[2016-12-26] MEDS: SEVELAMER CARBONATE 0.8 GM PKT PO SCH ×3 (08:59→17:38)
[2016-12-26] MEDS: CLOPIDOGREL 75 MG TAB PO SCH (09:01)
[2016-12-26] MEDS: AL HYDROX/MG HYDROX/SIMETH 30 ML CUP PO SCH ×4 (09:01→21:25)
[2016-12-26] MEDS: CALCIUM CARBONATE 500 MG CHEW TAB PO SCH ×4 (09:01→21:17)
[2016-12-26] MEDS: AMLODIPINE 10 MG TAB PO SCH (09:01)
[2016-12-26] MEDS: CITALOPRAM 20 MG TAB PO SCH (09:01)
[2016-12-26] MEDS: LABETALOL 200 MG TAB PO SCH ×2 (09:01→21:00)
[2016-12-26] MEDS: HEPARIN 5,000 UNIT/0.5 ML VIAL SC SCH ×2 (09:09→21:32)
[2016-12-26] MEDS: INSULIN GLARGINE [LANtus] 3 ML PEN SC SCH (09:30)
--- NOTE | 2016-12-26 14:46 | PN ---
DATE: 12/26/2016 SUBJECTIVE: Patient is alert, eating lunch. Denies pain, no fevers overnight. WBC today 10.4, no shift, no bands. MICROBIOLOGY: Blood cultures since admission grew Staphylococcus aureus and streptococcus species. Repeat blood cultures from yesterday growing gram- positive cocci in pairs and clusters. INDWELLINGS: The patient has a left upper extremity AV fistula. ANTIMICROBIALS: The patient remains on IV vancomycin. DIAGNOSTICS: Chest x-ray on admission revealed moderate cardiomegaly. Extremity venous study revealed no evidence of DVT. PHYSICAL EXAMINATION: GENERAL: Fragile, well-developed, elderly man who is alert, in no distress. HEENT: Head atraumatic, normocephalic. Sclerae anicteric. Buccal mucosa dry. NECK: Supple. CHEST: Rise symmetrical. Breath sounds clear. HEART: S1, S2. ABDOMEN: Soft. Bowel tones present. EXTREMITIES: Left upper extremity AV fistula patent. ASSESSMENT: 1. Polymicrobial bacteremia, etiology unclear, possibly secondary to infected arteriovenous fistula, with repeat blood cultures remain negative and 2D echo revealed no evidence for vegetations. 2. End-stage renal disease, hemodialysis dependent. 3. Diabetes. 4. Hypertension. PLAN: The patient remains hemodynamically stable. Repeat blood cultures still positive. A 2D echo revealed no vegetations. Left upper extremity does not look infected. The patient is on appropriate antimicrobials. We will order WBC labeled nuclear scan to rule out other etiologies for bacteremia. Dictated By: ALDA BARBER SUPERVISOR [employer] for KALYN DAMON/MICHELLE Conf#: [id number] DID#: [id number] CAMILLA
--- NOTE | 2016-12-26 15:39 | CONS ---
Date/Time of Note Date/Time of Note DATE: 12/26/16 TIME: 15:33 Assessment/Plan Assessment/Plan Additional Assessment/Plan 1. End-stage renal disease. cont hd q m/w/f 2- staph and strept bacteremia: on abx and w/u ongoing per id.echo negative for endocarditis. ? avf related infection. consider wbc scan/ vascular eval 3- Right CVA with left hemiparesis in 2012 5. Hypertension 6. Hyperlipidemia 7. Anemia,on epogen Consultation Date/Type/Reason Admit Date/Time December 23, 2016 at 15:25 Initial Consult Date Reason for Consultation doing well. no complaints Exam/Review of Systems Vital Signs Vitals Vital Signs Date Time Temp Pulse Resp B/P Pulse Ox O2 Delivery O2 Flow Rate FiO2 12/26/16 07:41 98.6 66 20 140/65 93 12/25/16 00:57 Nasal Cannula 2.0 Intake and Output 12/25/16 12/25/16 12/26/16 15:00 23:00 07:00 Intake Total 300 ml 730 ml 120 ml Output Total 4000 ml Balance -3700 ml 730 ml 120 ml Exam Constitutional: alert, frail Psych: no complaints Head: normocephalic Eyes: nl conjunctiva Neck: non-tender, supple Respiratory: clear to auscultation, normal air movement Cardiovascular: regular rate and rhythm Gastrointestinal: non-tender, soft Results Result Diagram: 12/26/16 0520 12/26/16 0520 Results 24 hrs Laboratory Tests Test 12/25/16 17:17 12/25/16 20:23 12/26/16 05:20 12/26/16 08:06 Bedside Glucose 174 159 121 White Blood Count 10.4 Red Blood Count 2.75 L Hemoglobin 8.7 L Hematocrit 28.2 L Mean Corpuscular Volume 102.5 H Mean Corpuscular Hemoglobin 31.6 Mean Corpuscular Hemoglobin Concent 30.9 L Red Cell Distribution Width 14.6 H Platelet Count 293 Mean Platelet Volume 9.7 Neutrophils % 75.1 Lymphocytes % 9.4 L Monocytes % 13.3 H Eosinophils % 1.5 Basophils % 0.3 Nucleated Red Blood Cells % 0.0 Neutrophils # 7.8 H Lymphocytes # 1.0 Monocytes # 1.4 H Eosinophils # 0.2 Basophils # 0.0 Nucleated Red Blood Cells # 0.0 Sodium Level 138 Potassium Level 4.7 Chloride Level 97 Carbon Dioxide Level 31 Anion Gap 15 Blood Urea Nitrogen 33 #H Creatinine 5.86 H Glucose Level 121 Calcium Level 8.9 Creatine Kinase 212 #H Creatine Kinase Index 0.8 Creatinine Kinase MB (Mass) 1.72 Troponin I 0.028 Test 12/26/16 09:14 12/26/16 12:13 Bedside Glucose 205 216 Medications Medications Current Medications Amlodipine Besylate (Norvasc) 10 mg DAILY PO Last administered on 12/26/16 09: 01; Admin Dose 10 MG; Start 12/24/16 at 09:00 Atorvastatin Calcium (Lipitor) 40 mg QHS PO Last administered on 12/25/16 20:27 ; Admin Dose 40 MG; Start 12/23/16 at 21:00 Citalopram Hydrobromide (Celexa) 20 mg DAILY PO Last administered on 12/26/16 09:01; Admin Dose 20 MG; Start 12/24/16 at 09:00 Clopidogrel Bisulfate (plaVIX) 75 mg DAILY PO Last administered on 12/26/16 09: 01; Admin Dose 75 MG; Start 12/24/16 at 09:00 Insulin Glargine (Lantus) 20 unit QAM SC Last administered on 12/26/16 09:30; Admin Dose 20 UNIT; Start 12/24/16 at 09:00 Labetalol HCl (Normodyne) 200 mg BID PO Last administered on 12/26/16 09:01; Admin Dose 200 MG; Start 12/23/16 at 21:00 Terazosin HCl (Hytrin) 2 mg HS PO Last administered on 12/25/16 20:28; Admin Dose 2 MG; Start 12/23/16 at 21:00 Tramadol HCl (Ultram) 50 mg Q8 PRN PO PAIN; Start 12/23/16 at 17:30 Docusate Sodium (Colace) 100 mg Q12H PRN PO CONSTIPATION; Start 12/23/16 at 17: 30 Magnesium Hydroxide (Milk Of Mag) 30 ml DAILY PRN PO CONSTIPATION; Start at 17:30 Bisacodyl (Dulcolax) 5 mg DAILY PRN PO CONSTIPATION; Start 12/23/16 at 17:30 Bisacodyl (Dulcolax Supp) 10 mg DAILY PRN [place] CONSTIPATION; Start 12/23/16 at 17 :30 Al Hydrox/Mg Hydrox/Simethicone (Mag-Al Plus) 30 ml QID PO Last administered on 12/26/16 12:44; Admin Dose 30 ML; Start 12/23/16 at 21:00 Calcium Carbonate (Tums) 500 mg QID PO Last administered on 12/26/16 12:43; Admin Dose 500 MG; Start 12/23/16 at 21:00 Miscellaneous Information 1 ea NOTE XX ; Start 12/23/16 at 17:30 Glucose (Glutose) 15 gm Q15M PRN PO DECREASED GLUCOSE; Start 12/23/16 at 17:30 Glucose (Glutose) 22.5 gm Q15M PRN PO DECREASED GLUCOSE; Start 12/23/16 at 17: 30 Dextrose (D50w Syringe) 25 ml Q15M PRN IV DECREASED GLUCOSE; Start 12/23/16 at 17:30 Dextrose (D50w Syringe) 50 ml Q15M PRN IV DECREASED GLUCOSE; Start 12/23/16 at 17:30 Glucagon (Glucagen) 1 mg Q15M PRN IM DECREASED GLUCOSE; Start 12/23/16 at 17:30 Glucose (Glutose) 15 gm Q15M PRN BUCCAL DECREASED GLUCOSE; Start 12/23/16 at 17 :30 Acetaminophen/ Hydrocodone Bitart ([place] (5/325)) 1 tab Q4H PRN PO PAIN LEVEL 6 -10 Last administered on 12/24/16 15:35; Admin Dose 1 TAB; Start 12/23/16 at 19: 00 Hydromorphone HCl (Dilaudid) 0.5 mg Q4H PRN IV PAIN LEVEL 7-10 Last administered on 12/24/16 00:48; Admin Dose 0.5 MG; Start 12/23/16 at 19:00 Vancomycin HCl (Vanco Iv Per Pharmacy) PER PHARMACY DOSING NOTE XX ; Start at 10:00 Heparin Sodium (Porcine) (Heparin (5000 Units/0.5 ml)) 5,000 unit Q12 SC Last administered on 12/26/16 09:09; Admin Dose 5,000 UNIT; Start 12/24/16 at 21:00 Epoetin Spencer (Epogen (Esrd)) 10,000 units MoWeFr@17 SC Last administered on 12/25 17:26; Admin Dose 10,000 UNITS; Start 12/25/16 at 17:00 Baclofen (Lioresal) 5 mg TID PRN PO HICCUPS Last administered on 12/25/16 17:24 ; Admin Dose 5 MG; Start 12/25/16 at 14:00 VALENTE SEGUNDO MD Dec 26, 2016 15:39
--- NOTE | 2016-12-26 15:57 | PN ---
Date/Time of Note Date/Time of Note DATE: 12/26/16 TIME: 15:54 Assessment/Plan VTE Prophylaxis VTE Prophylaxis Intervention: SCD's Lines/Catheters IV Catheter Type (from Nrsg): Saline Lock Assessment/Plan Assessment/Plan . 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 mimi Joy following- s/p HD yesterday, HD as per Nephrology BP stable Subjective 24 Hr Interval Summary Free Text/Dictation afebrile, s/p HD yesterday, follow up blood cx grew 1/2 positive Exam/Review of Systems Vital Signs Vitals Vital Signs Date Time Temp Pulse Resp B/P Pulse Ox O2 Delivery O2 Flow Rate FiO2 12/26/16 07:41 98.6 66 20 140/65 93 12/25/16 00:57 Nasal Cannula 2.0 Intake and Output 12/25/16 12/25/16 12/26/16 15:00 23:00 07:00 Intake Total 300 ml 730 ml 120 ml Output Total 4000 ml Balance -3700 ml 730 ml 120 ml Exam Constitutional: alert Head: normocephalic Neck: supple Respiratory: clear to auscultation, diminished breath sounds Cardiovascular: regular rate and rhythm Gastrointestinal: non-tender, soft Musculoskeletal: other (left forearm tenderness ) Extremities: normal pulses 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 Results Result Diagram: 12/26/16 0520 12/26/16 0520 Results 24 hrs Laboratory Tests Test 12/25/16 17:17 12/25/16 20:23 12/26/16 05:20 12/26/16 08:06 Bedside Glucose 174 159 121 White Blood Count 10.4 Red Blood Count 2.75 L Hemoglobin 8.7 L Hematocrit 28.2 L Mean Corpuscular Volume 102.5 H Mean Corpuscular Hemoglobin 31.6 Mean Corpuscular Hemoglobin Concent 30.9 L Red Cell Distribution Width 14.6 H Platelet Count 293 Mean Platelet Volume 9.7 Neutrophils % 75.1 Lymphocytes % 9.4 L Monocytes % 13.3 H Eosinophils % 1.5 Basophils % 0.3 Nucleated Red Blood Cells % 0.0 Neutrophils # 7.8 H Lymphocytes # 1.0 Monocytes # 1.4 H Eosinophils # 0.2 Basophils # 0.0 Nucleated Red Blood Cells # 0.0 Sodium Level 138 Potassium Level 4.7 Chloride Level 97 Carbon Dioxide Level 31 Anion Gap 15 Blood Urea Nitrogen 33 #H Creatinine 5.86 H Glucose Level 121 Calcium Level 8.9 Creatine Kinase 212 #H Creatine Kinase Index 0.8 Creatinine Kinase MB (Mass) 1.72 Troponin I 0.028 Test 12/26/16 09:14 12/26/16 12:13 Bedside Glucose 205 216 Medications Medications Current Medications Amlodipine Besylate (Norvasc) 10 mg DAILY PO Last administered on 12/26/16 09: 01; Admin Dose 10 MG; Start 12/24/16 at 09:00 Atorvastatin Calcium (Lipitor) 40 mg QHS PO Last administered on 12/25/16 20:27 ; Admin Dose 40 MG; Start 12/23/16 at 21:00 Citalopram Hydrobromide (Celexa) 20 mg DAILY PO Last administered on 12/26/16 09:01; Admin Dose 20 MG; Start 12/24/16 at 09:00 Clopidogrel Bisulfate (plaVIX) 75 mg DAILY PO Last administered on 12/26/16 09: 01; Admin Dose 75 MG; Start 12/24/16 at 09:00 Insulin Glargine (Lantus) 20 unit QAM SC Last administered on 12/26/16 09:30; Admin Dose 20 UNIT; Start 12/24/16 at 09:00 Labetalol HCl (Normodyne) 200 mg BID PO Last administered on 12/26/16 09:01; Admin Dose 200 MG; Start 12/23/16 at 21:00 Terazosin HCl (Hytrin) 2 mg HS PO Last administered on 12/25/16 20:28; Admin Dose 2 MG; Start 12/23/16 at 21:00 Tramadol HCl (Ultram) 50 mg Q8 PRN PO PAIN; Start 12/23/16 at 17:30 Docusate Sodium (Colace) 100 mg Q12H PRN PO CONSTIPATION; Start 12/23/16 at 17: 30 Magnesium Hydroxide (Milk Of Mag) 30 ml DAILY PRN PO CONSTIPATION; Start at 17:30 Bisacodyl (Dulcolax) 5 mg DAILY PRN PO CONSTIPATION; Start 12/23/16 at 17:30 Bisacodyl (Dulcolax Supp) 10 mg DAILY PRN [place] CONSTIPATION; Start 12/23/16 at 17 :30 Al Hydrox/Mg Hydrox/Simethicone (Mag-Al Plus) 30 ml QID PO Last administered on 12/26/16 12:44; Admin Dose 30 ML; Start 12/23/16 at 21:00 Calcium Carbonate (Tums) 500 mg QID PO Last administered on 12/26/16 12:43; Admin Dose 500 MG; Start 12/23/16 at 21:00 Miscellaneous Information 1 ea NOTE XX ; Start 12/23/16 at 17:30 Glucose (Glutose) 15 gm Q15M PRN PO DECREASED GLUCOSE; Start 12/23/16 at 17:30 Glucose (Glutose) 22.5 gm Q15M PRN PO DECREASED GLUCOSE; Start 12/23/16 at 17: 30 Dextrose (D50w Syringe) 25 ml Q15M PRN IV DECREASED GLUCOSE; Start 12/23/16 at 17:30 Dextrose (D50w Syringe) 50 ml Q15M PRN IV DECREASED GLUCOSE; Start 12/23/16 at 17:30 Glucagon (Glucagen) 1 mg Q15M PRN IM DECREASED GLUCOSE; Start 12/23/16 at 17:30 Glucose (Glutose) 15 gm Q15M PRN BUCCAL DECREASED GLUCOSE; Start 12/23/16 at 17 :30 Acetaminophen/ Hydrocodone Bitart ([place] (5/325)) 1 tab Q4H PRN PO PAIN LEVEL 6 -10 Last administered on 12/24/16 15:35; Admin Dose 1 TAB; Start 12/23/16 at 19: 00 Hydromorphone HCl (Dilaudid) 0.5 mg Q4H PRN IV PAIN LEVEL 7-10 Last administered on 12/24/16 00:48; Admin Dose 0.5 MG; Start 12/23/16 at 19:00 Vancomycin HCl (Vanco Iv Per Pharmacy) PER PHARMACY DOSING NOTE XX ; Start at 10:00 Heparin Sodium (Porcine) (Heparin (5000 Units/0.5 ml)) 5,000 unit Q12 SC Last administered on 12/26/16 09:09; Admin Dose 5,000 UNIT; Start 12/24/16 at 21:00 Epoetin Spencer (Epogen (Esrd)) 10,000 units MoWeFr@17 SC Last administered on 12/25 17:26; Admin Dose 10,000 UNITS; Start 12/25/16 at 17:00 Baclofen (Lioresal) 5 mg TID PRN PO HICCUPS Last administered on 12/25/16 17:24 ; Admin Dose 5 MG; Start 12/25/16 at 14:00 ANAMIKA HO MD Dec 26, 2016 15:57
[2016-12-26] MEDS: BACLOFEN 10 MG TAB PO PRN ×2 (16:10→21:24)
[2016-12-26 19:39] VITALS: BP 129/60; RESP 18
[2016-12-26] MEDS: TERAZOSIN 2 MG CAP PO SCH (21:18)
[2016-12-26] MEDS: ATORVASTATIN 40 MG TAB PO SCH (21:18)
[2016-12-27 05:56] LABS: ADD SCAN DIFF NO; BASOPHILS % 0.2 % (0.0-2.0); EOSINOPHILS # 0.2 10^3/ul (0.0-0.5); EOSINOPHILS % 2.3 % (0.0-7.0); HEMATOCRIT 27.6 % (42.0-52.0); HEMOGLOBIN 8.7 g/dl (14.0-18.0); LYMPHOCYTES # 1.1 10^3/ul (0.8-2.9); LYMPHOCYTES % 11.2 % (15.0-51.0); MEAN CORPUSCULAR HEMOGLOBIN 31.4 pg (29.0-33.0); MEAN CORPUSCULAR HGB CONC 31.5 g/dl (32.0-37.0); MEAN CORPUSCULAR VOLUME 99.6 fl (82.0-101.0); MEAN PLATELET VOLUME 9.9 fl (7.4-10.4); MONOCYTE # 1.1 10^3/ul (0.3-0.9); MONOCYTES % 11.8 % (0.0-11.0); NEUTROPHILS % 74.1 % (39.0-77.0); PLATELET COUNT 299 10^3/UL (140-415); RED BLOOD COUNT 2.77 10^6/ul (4.70-6.10); RED CELL DISTRIBUTION WIDTH 14.6 % (11.5-14.5); WHITE BLOOD COUNT 9.4 10^3/ul (4.8-10.8)
[2016-12-27 06:25] LABS: ALBUMIN 4.4 g/dl (3.3-4.9); ALBUMIN/GLOBULIN RATIO 1.41; BILIRUBIN,INDIRECT 0.1 mg/dl (0-1.1); BILIRUBIN,TOTAL 0.1 mg/dl (0.2-1.3); CALCIUM 8.7 mg/dl (8.4-10.2); POTASSIUM 4.7 mmol/L (3.5-5.1); TOTAL PROTEIN 7.5 g/dl (6.1-8.1)
[2016-12-27] MEDS: INSULIN ASPART [NOVOLOG] 3 ML PEN SC SCH ×4 (07:44→20:33)
[2016-12-27 08:02] VITALS: BP 151/79; RESP 18
[2016-12-27 08:04] VITALS: BP 151/79; RESP 18
[2016-12-27] MEDS: SEVELAMER CARBONATE 0.8 GM PKT PO SCH ×3 (08:22→17:53)
[2016-12-27 09:48] VITALS: BP 146/69; PULSE 70
[2016-12-27] MEDS: LABETALOL 200 MG TAB PO SCH ×2 (09:56→20:46)
[2016-12-27] MEDS: AL HYDROX/MG HYDROX/SIMETH 30 ML CUP PO SCH ×4 (09:56→20:30)
[2016-12-27] MEDS: CITALOPRAM 20 MG TAB PO SCH (09:56)
[2016-12-27] MEDS: AMLODIPINE 10 MG TAB PO SCH (09:56)
[2016-12-27] MEDS: CLOPIDOGREL 75 MG TAB PO SCH (09:56)
[2016-12-27] MEDS: CALCIUM CARBONATE 500 MG CHEW TAB PO SCH ×4 (09:57→20:30)
[2016-12-27] MEDS: HEPARIN 5,000 UNIT/0.5 ML VIAL SC SCH ×2 (09:58→20:44)
[2016-12-27] MEDS: INSULIN GLARGINE [LANtus] 3 ML PEN SC SCH (09:59)
[2016-12-27 10:03] VITALS: BP 147/70; PULSE 71
--- NOTE | 2016-12-27 14:18 | PN ---
Date/Time of Note Date/Time of Note DATE: 12/27/16 TIME: 14:16 Assessment/Plan VTE Prophylaxis VTE Prophylaxis Intervention: heparin Lines/Catheters IV Catheter Type (from Nrsg): Saline Lock Assessment/Plan Assessment/Plan . Left forearm pain, US neg for DVT SIRS , Bacteremia with staph aureus, pt has LUE AVF in place, ESRD on HD HTN HL Plan: IV abx vancomycin, Blood cx 2/2 positive for staph aureus on 12/23/16, repeat blood Cx x 2 12/25/16 had 1/2 positive, another two sets of blood cx on 12/26/16- no growth to date ID consuled Heparin for DVT prophylaxis mimi Joy following- HD as per Nephrology BP stable Subjective 24 Hr Interval Summary Free Text/Dictation doing ok,BP stable , Blood cx positive Exam/Review of Systems Vital Signs Vitals Vital Signs Date Time Temp Pulse Resp B/P Pulse Ox O2 Delivery O2 Flow Rate FiO2 12/27/16 10:03 71 147/70 12/27/16 08:04 98.4 18 97 12/25/16 00:57 Nasal Cannula 2.0 Intake and Output 12/26/16 12/26/16 12/27/16 15:00 23:00 07:00 Intake Total 1060 ml 200 ml Balance 1060 ml 200 ml Exam Constitutional: alert Head: normocephalic Neck: supple Respiratory: clear to auscultation, diminished breath sounds Cardiovascular: regular rate and rhythm Gastrointestinal: non-tender, soft Musculoskeletal: other (left forearm tenderness ) Extremities: normal pulses 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 Results Result Diagram: 12/27/16 0525 12/27/16 0525 Results 24 hrs Laboratory Tests Test 12/26/16 17:35 12/26/16 21:16 12/27/16 05:25 12/27/16 07:43 Bedside Glucose 128 166 132 White Blood Count 9.4 Red Blood Count 2.77 L Hemoglobin 8.7 L Hematocrit 27.6 L Mean Corpuscular Volume 99.6 Mean Corpuscular Hemoglobin 31.4 Mean Corpuscular Hemoglobin Concent 31.5 L Red Cell Distribution Width 14.6 H Platelet Count 299 Mean Platelet Volume 9.9 Neutrophils % 74.1 Lymphocytes % 11.2 L Monocytes % 11.8 H Eosinophils % 2.3 Basophils % 0.2 Nucleated Red Blood Cells % 0.0 Neutrophils # 7.0 Lymphocytes # 1.1 Monocytes # 1.1 H Eosinophils # 0.2 Basophils # 0.0 Nucleated Red Blood Cells # 0.0 Sodium Level 133 L Potassium Level 4.7 Chloride Level 93 L Carbon Dioxide Level 28 Anion Gap 17 H Blood Urea Nitrogen 47 #H Creatinine 7.00 H Glucose Level 110 Calcium Level 8.7 Total Bilirubin 0.1 L Direct Bilirubin 0.00 Indirect Bilirubin 0.1 Aspartate Amino Transf (AST/SGOT) 41 Alanine Aminotransferase (ALT/SGPT) 56 Alkaline Phosphatase 195 H Total Protein 7.5 Albumin 4.4 Globulin 3.10 Albumin/Globulin Ratio 1.41 Test 12/27/16 09:54 12/27/16 12:14 Bedside Glucose 148 193 Medications Medications Current Medications Amlodipine Besylate (Norvasc) 10 mg DAILY PO Last administered on 12/27/16 09: 56; Admin Dose 10 MG; Start 12/24/16 at 09:00 Atorvastatin Calcium (Lipitor) 40 mg QHS PO Last administered on 12/26/16 21:18 ; Admin Dose 40 MG; Start 12/23/16 at 21:00 Citalopram Hydrobromide (Celexa) 20 mg DAILY PO Last administered on 12/27/16 09:56; Admin Dose 20 MG; Start 12/24/16 at 09:00 Clopidogrel Bisulfate (plaVIX) 75 mg DAILY PO Last administered on 12/27/16 09: 56; Admin Dose 75 MG; Start 12/24/16 at 09:00 Insulin Glargine (Lantus) 20 unit QAM SC Last administered on 12/27/16 09:59; Admin Dose 20 UNIT; Start 12/24/16 at 09:00 Labetalol HCl (Normodyne) 200 mg BID PO Last administered on 12/27/16 09:56; Admin Dose 200 MG; Start 12/23/16 at 21:00 Terazosin HCl (Hytrin) 2 mg HS PO Last administered on 12/26/16 21:18; Admin Dose 2 MG; Start 12/23/16 at 21:00 Tramadol HCl (Ultram) 50 mg Q8 PRN PO PAIN; Start 12/23/16 at 17:30 Docusate Sodium (Colace) 100 mg Q12H PRN PO CONSTIPATION; Start 12/23/16 at 17: 30 Magnesium Hydroxide (Milk Of Mag) 30 ml DAILY PRN PO CONSTIPATION; Start at 17:30 Bisacodyl (Dulcolax) 5 mg DAILY PRN PO CONSTIPATION; Start 12/23/16 at 17:30 Bisacodyl (Dulcolax Supp) 10 mg DAILY PRN [place] CONSTIPATION; Start 12/23/16 at 17 :30 Al Hydrox/Mg Hydrox/Simethicone (Mag-Al Plus) 30 ml QID PO Last administered on 12/27/16 13:03; Admin Dose 30 ML; Start 12/23/16 at 21:00 Calcium Carbonate (Tums) 500 mg QID PO Last administered on 12/27/16 13:02; Admin Dose 500 MG; Start 12/23/16 at 21:00 Miscellaneous Information 1 ea NOTE XX ; Start 12/23/16 at 17:30 Glucose (Glutose) 15 gm Q15M PRN PO DECREASED GLUCOSE; Start 12/23/16 at 17:30 Glucose (Glutose) 22.5 gm Q15M PRN PO DECREASED GLUCOSE; Start 12/23/16 at 17: 30 Dextrose (D50w Syringe) 25 ml Q15M PRN IV DECREASED GLUCOSE; Start 12/23/16 at 17:30 Dextrose (D50w Syringe) 50 ml Q15M PRN IV DECREASED GLUCOSE; Start 12/23/16 at 17:30 Glucagon (Glucagen) 1 mg Q15M PRN IM DECREASED GLUCOSE; Start 12/23/16 at 17:30 Glucose (Glutose) 15 gm Q15M PRN BUCCAL DECREASED GLUCOSE; Start 12/23/16 at 17 :30 Acetaminophen/ Hydrocodone Bitart ([place] (5/325)) 1 tab Q4H PRN PO PAIN LEVEL 6 -10 Last administered on 12/24/16 15:35; Admin Dose 1 TAB; Start 12/23/16 at 19: 00 Hydromorphone HCl (Dilaudid) 0.5 mg Q4H PRN IV PAIN LEVEL 7-10 Last administered on 12/24/16 00:48; Admin Dose 0.5 MG; Start 12/23/16 at 19:00 Vancomycin HCl (Vanco Iv Per Pharmacy) PER PHARMACY DOSING NOTE XX ; Start at 10:00 Heparin Sodium (Porcine) (Heparin (5000 Units/0.5 ml)) 5,000 unit Q12 SC Last administered on 12/27/16 09:58; Admin Dose 5,000 UNIT; Start 12/24/16 at 21:00 Epoetin Spencer (Epogen (Esrd)) 10,000 units MoWeFr@17 SC Last administered on 12/25 17:26; Admin Dose 10,000 UNITS; Start 12/25/16 at 17:00 Baclofen (Lioresal) 5 mg TID PRN PO HICCUPS Last administered on 12/26/16 21:24 ; Admin Dose 5 MG; Start 12/25/16 at 14:00 Miscellaneous Information (*Rx Drug Level Order Reminder*) VANCOMYCIN RANDOM LEVEL IN AM ONCE ONCE XX ; Start 12/28/16 at 05:00; Stop 12/28/16 at 05:01 ANAMIKA HO MD Dec 27, 2016 14:18
--- NOTE | 2016-12-27 15:08 | CONS ---
Date/Time of Note Date/Time of Note DATE: 12/27/16 TIME: 15:07 Assessment/Plan Assessment/Plan Chief Complaint/Hosp Course SUBJECTIVE: Patient is alert, eating lunch. Denies pain, no fevers overnight. MICROBIOLOGY: Blood cultures since admission grew Staphylococcus aureus and streptococcus species. Repeat blood cultures from yesterday growing gram- positive cocci in pairs and clusters. INDWELLINGS: The patient has a left upper extremity AV fistula. ANTIMICROBIALS: The patient remains on IV vancomycin. DIAGNOSTICS: Chest x-ray on admission revealed moderate cardiomegaly. Extremity venous study revealed no evidence of DVT. PHYSICAL EXAMINATION: GENERAL: Fragile, well-developed, elderly man who is alert, in no distress. HEENT: Head atraumatic, normocephalic. Sclerae anicteric. Buccal mucosa dry. NECK: Supple. CHEST: Rise symmetrical. Breath sounds clear. HEART: S1, S2. ABDOMEN: Soft. Bowel tones present. EXTREMITIES: Left upper extremity AV fistula patent. ASSESSMENT: 1. Polymicrobial bacteremia, etiology unclear, possibly secondary to infected arteriovenous fistula, with repeat blood cultures remain negative and 2D echo revealed no evidence for vegetations. 2. End-stage renal disease, hemodialysis dependent. 3. Diabetes. 4. Hypertension. PLAN: The patient remains hemodynamically stable. 2D echo revealed no vegetations. Left upper extremity does not look infected. The patient is on appropriate antimicrobials. Pending WBC labeled nuclear scan [facility] staff Problems: Consultation Date/Type/Reason Admit Date/Time December 23, 2016 at 15:25 Initial Consult Date Type of Consultation: ID Exam/Review of Systems Vital Signs Vitals Vital Signs Date Time Temp Pulse Resp B/P Pulse Ox O2 Delivery O2 Flow Rate FiO2 12/27/16 10:03 71 147/70 12/27/16 08:04 98.4 18 97 12/25/16 00:57 Nasal Cannula 2.0 Intake and Output 12/26/16 12/26/16 12/27/16 15:00 23:00 07:00 Intake Total 1060 ml 200 ml Balance 1060 ml 200 ml Results Result Diagram: 12/27/16 0525 12/27/16 0525 Results 24 hrs Laboratory Tests Test 12/26/16 17:35 12/26/16 21:16 12/27/16 05:25 12/27/16 07:43 Bedside Glucose 128 166 132 White Blood Count 9.4 Red Blood Count 2.77 L Hemoglobin 8.7 L Hematocrit 27.6 L Mean Corpuscular Volume 99.6 Mean Corpuscular Hemoglobin 31.4 Mean Corpuscular Hemoglobin Concent 31.5 L Red Cell Distribution Width 14.6 H Platelet Count 299 Mean Platelet Volume 9.9 Neutrophils % 74.1 Lymphocytes % 11.2 L Monocytes % 11.8 H Eosinophils % 2.3 Basophils % 0.2 Nucleated Red Blood Cells % 0.0 Neutrophils # 7.0 Lymphocytes # 1.1 Monocytes # 1.1 H Eosinophils # 0.2 Basophils # 0.0 Nucleated Red Blood Cells # 0.0 Sodium Level 133 L Potassium Level 4.7 Chloride Level 93 L Carbon Dioxide Level 28 Anion Gap 17 H Blood Urea Nitrogen 47 #H Creatinine 7.00 H Glucose Level 110 Calcium Level 8.7 Total Bilirubin 0.1 L Direct Bilirubin 0.00 Indirect Bilirubin 0.1 Aspartate Amino Transf (AST/SGOT) 41 Alanine Aminotransferase (ALT/SGPT) 56 Alkaline Phosphatase 195 H Total Protein 7.5 Albumin 4.4 Globulin 3.10 Albumin/Globulin Ratio 1.41 Test 12/27/16 09:54 12/27/16 12:14 Bedside Glucose 148 193 Medications Medications Current Medications Amlodipine Besylate (Norvasc) 10 mg DAILY PO Last administered on 12/27/16 09: 56; Admin Dose 10 MG; Start 12/24/16 at 09:00 Atorvastatin Calcium (Lipitor) 40 mg QHS PO Last administered on 12/26/16 21:18 ; Admin Dose 40 MG; Start 12/23/16 at 21:00 Citalopram Hydrobromide (Celexa) 20 mg DAILY PO Last administered on 12/27/16 09:56; Admin Dose 20 MG; Start 12/24/16 at 09:00 Clopidogrel Bisulfate (plaVIX) 75 mg DAILY PO Last administered on 12/27/16 09: 56; Admin Dose 75 MG; Start 12/24/16 at 09:00 Insulin Glargine (Lantus) 20 unit QAM SC Last administered on 12/27/16 09:59; Admin Dose 20 UNIT; Start 12/24/16 at 09:00 Labetalol HCl (Normodyne) 200 mg BID PO Last administered on 12/27/16 09:56; Admin Dose 200 MG; Start 12/23/16 at 21:00 Terazosin HCl (Hytrin) 2 mg HS PO Last administered on 12/26/16 21:18; Admin Dose 2 MG; Start 12/23/16 at 21:00 Tramadol HCl (Ultram) 50 mg Q8 PRN PO PAIN; Start 12/23/16 at 17:30 Docusate Sodium (Colace) 100 mg Q12H PRN PO CONSTIPATION; Start 12/23/16 at 17: 30 Magnesium Hydroxide (Milk Of Mag) 30 ml DAILY PRN PO CONSTIPATION; Start at 17:30 Bisacodyl (Dulcolax) 5 mg DAILY PRN PO CONSTIPATION; Start 12/23/16 at 17:30 Bisacodyl (Dulcolax Supp) 10 mg DAILY PRN [place] CONSTIPATION; Start 12/23/16 at 17 :30 Al Hydrox/Mg Hydrox/Simethicone (Mag-Al Plus) 30 ml QID PO Last administered on 12/27/16 13:03; Admin Dose 30 ML; Start 12/23/16 at 21:00 Calcium Carbonate (Tums) 500 mg QID PO Last administered on 12/27/16 13:02; Admin Dose 500 MG; Start 12/23/16 at 21:00 Miscellaneous Information 1 ea NOTE XX ; Start 12/23/16 at 17:30 Glucose (Glutose) 15 gm Q15M PRN PO DECREASED GLUCOSE; Start 12/23/16 at 17:30 Glucose (Glutose) 22.5 gm Q15M PRN PO DECREASED GLUCOSE; Start 12/23/16 at 17: 30 Dextrose (D50w Syringe) 25 ml Q15M PRN IV DECREASED GLUCOSE; Start 12/23/16 at 17:30 Dextrose (D50w Syringe) 50 ml Q15M PRN IV DECREASED GLUCOSE; Start 12/23/16 at 17:30 Glucagon (Glucagen) 1 mg Q15M PRN IM DECREASED GLUCOSE; Start 12/23/16 at 17:30 Glucose (Glutose) 15 gm Q15M PRN BUCCAL DECREASED GLUCOSE; Start 12/23/16 at 17 :30 Acetaminophen/ Hydrocodone Bitart ([place] (5/325)) 1 tab Q4H PRN PO PAIN LEVEL 6 -10 Last administered on 12/24/16 15:35; Admin Dose 1 TAB; Start 12/23/16 at 19: 00 Hydromorphone HCl (Dilaudid) 0.5 mg Q4H PRN IV PAIN LEVEL 7-10 Last administered on 12/24/16 00:48; Admin Dose 0.5 MG; Start 12/23/16 at 19:00 Vancomycin HCl (Vanco Iv Per Pharmacy) PER PHARMACY DOSING NOTE XX ; Start at 10:00 Heparin Sodium (Porcine) (Heparin (5000 Units/0.5 ml)) 5,000 unit Q12 SC Last administered on 12/27/16 09:58; Admin Dose 5,000 UNIT; Start 12/24/16 at 21:00 Epoetin Spencer (Epogen (Esrd)) 10,000 units MoWeFr@17 SC Last administered on 12/25 17:26; Admin Dose 10,000 UNITS; Start 12/25/16 at 17:00 Baclofen (Lioresal) 5 mg TID PRN PO HICCUPS Last administered on 12/26/16 21:24 ; Admin Dose 5 MG; Start 12/25/16 at 14:00 Miscellaneous Information (*Rx Drug Level Order Reminder*) VANCOMYCIN RANDOM LEVEL IN AM ONCE ONCE XX ; Start 12/28/16 at 05:00; Stop 12/28/16 at 05:01 ALDA BARBER NP Dec 27, 2016 15:08
--- NOTE | 2016-12-27 18:10 | CONS ---
Date/Time of Note Date/Time of Note DATE: 12/27/16 TIME: 18:09 Assessment/Plan Assessment/Plan Additional Assessment/Plan 1. End-stage renal disease. cont hd q m/w/f. hd in am 2- staph and strept bacteremia: on abx and w/u ongoing per id.echo negative for endocarditis. ? avf related infection. consider wbc scan/ vascular eval 3- Right CVA with left hemiparesis in 2012 5. Hypertension 6. Hyperlipidemia 7. Anemia,on epogen Consultation Date/Type/Reason Admit Date/Time December 23, 2016 at 15:25 Type of Consultation: ID Reason for Consultation doing well. no issues Exam/Review of Systems Vital Signs Vitals Vital Signs Date Time Temp Pulse Resp B/P Pulse Ox O2 Delivery O2 Flow Rate FiO2 12/27/16 10:03 71 147/70 12/27/16 08:04 98.4 18 97 12/25/16 00:57 Nasal Cannula 2.0 Intake and Output 12/26/16 12/26/16 12/27/16 15:00 23:00 07:00 Intake Total 1060 ml 200 ml Balance 1060 ml 200 ml Exam Constitutional: alert, oriented Psych: no complaints Head: normocephalic Eyes: nl conjunctiva Neck: non-tender, supple Respiratory: clear to auscultation Cardiovascular: edema, nl pulses, regular rate and rhythm Gastrointestinal: non-tender, soft Results Result Diagram: 12/27/16 0525 12/27/16 0525 Results 24 hrs Laboratory Tests Test 12/26/16 21:16 12/27/16 05:25 12/27/16 07:43 12/27/16 09:54 Bedside Glucose 166 132 148 White Blood Count 9.4 Red Blood Count 2.77 L Hemoglobin 8.7 L Hematocrit 27.6 L Mean Corpuscular Volume 99.6 Mean Corpuscular Hemoglobin 31.4 Mean Corpuscular Hemoglobin Concent 31.5 L Red Cell Distribution Width 14.6 H Platelet Count 299 Mean Platelet Volume 9.9 Neutrophils % 74.1 Lymphocytes % 11.2 L Monocytes % 11.8 H Eosinophils % 2.3 Basophils % 0.2 Nucleated Red Blood Cells % 0.0 Neutrophils # 7.0 Lymphocytes # 1.1 Monocytes # 1.1 H Eosinophils # 0.2 Basophils # 0.0 Nucleated Red Blood Cells # 0.0 Sodium Level 133 L Potassium Level 4.7 Chloride Level 93 L Carbon Dioxide Level 28 Anion Gap 17 H Blood Urea Nitrogen 47 #H Creatinine 7.00 H Glucose Level 110 Calcium Level 8.7 Total Bilirubin 0.1 L Direct Bilirubin 0.00 Indirect Bilirubin 0.1 Aspartate Amino Transf (AST/SGOT) 41 Alanine Aminotransferase (ALT/SGPT) 56 Alkaline Phosphatase 195 H Total Protein 7.5 Albumin 4.4 Globulin 3.10 Albumin/Globulin Ratio 1.41 Test 12/27/16 12:14 12/27/16 17:26 Bedside Glucose 193 129 Medications Medications Current Medications Amlodipine Besylate (Norvasc) 10 mg DAILY PO Last administered on 12/27/16 09: 56; Admin Dose 10 MG; Start 12/24/16 at 09:00 Atorvastatin Calcium (Lipitor) 40 mg QHS PO Last administered on 12/26/16 21:18 ; Admin Dose 40 MG; Start 12/23/16 at 21:00 Citalopram Hydrobromide (Celexa) 20 mg DAILY PO Last administered on 12/27/16 09:56; Admin Dose 20 MG; Start 12/24/16 at 09:00 Clopidogrel Bisulfate (plaVIX) 75 mg DAILY PO Last administered on 12/27/16 09: 56; Admin Dose 75 MG; Start 12/24/16 at 09:00 Insulin Glargine (Lantus) 20 unit QAM SC Last administered on 12/27/16 09:59; Admin Dose 20 UNIT; Start 12/24/16 at 09:00 Labetalol HCl (Normodyne) 200 mg BID PO Last administered on 12/27/16 09:56; Admin Dose 200 MG; Start 12/23/16 at 21:00 Terazosin HCl (Hytrin) 2 mg HS PO Last administered on 12/26/16 21:18; Admin Dose 2 MG; Start 12/23/16 at 21:00 Tramadol HCl (Ultram) 50 mg Q8 PRN PO PAIN; Start 12/23/16 at 17:30 Docusate Sodium (Colace) 100 mg Q12H PRN PO CONSTIPATION; Start 12/23/16 at 17: 30 Magnesium Hydroxide (Milk Of Mag) 30 ml DAILY PRN PO CONSTIPATION; Start at 17:30 Bisacodyl (Dulcolax) 5 mg DAILY PRN PO CONSTIPATION; Start 12/23/16 at 17:30 Bisacodyl (Dulcolax Supp) 10 mg DAILY PRN [place] CONSTIPATION; Start 12/23/16 at 17 :30 Al Hydrox/Mg Hydrox/Simethicone (Mag-Al Plus) 30 ml QID PO Last administered on 12/27/16 17:53; Admin Dose 30 ML; Start 12/23/16 at 21:00 Calcium Carbonate (Tums) 500 mg QID PO Last administered on 12/27/16 17:53; Admin Dose 500 MG; Start 12/23/16 at 21:00 Miscellaneous Information 1 ea NOTE XX ; Start 12/23/16 at 17:30 Glucose (Glutose) 15 gm Q15M PRN PO DECREASED GLUCOSE; Start 12/23/16 at 17:30 Glucose (Glutose) 22.5 gm Q15M PRN PO DECREASED GLUCOSE; Start 12/23/16 at 17: 30 Dextrose (D50w Syringe) 25 ml Q15M PRN IV DECREASED GLUCOSE; Start 12/23/16 at 17:30 Dextrose (D50w Syringe) 50 ml Q15M PRN IV DECREASED GLUCOSE; Start 12/23/16 at 17:30 Glucagon (Glucagen) 1 mg Q15M PRN IM DECREASED GLUCOSE; Start 12/23/16 at 17:30 Glucose (Glutose) 15 gm Q15M PRN BUCCAL DECREASED GLUCOSE; Start 12/23/16 at 17 :30 Acetaminophen/ Hydrocodone Bitart ([place] (5/325)) 1 tab Q4H PRN PO PAIN LEVEL 6 -10 Last administered on 12/24/16 15:35; Admin Dose 1 TAB; Start 12/23/16 at 19: 00 Hydromorphone HCl (Dilaudid) 0.5 mg Q4H PRN IV PAIN LEVEL 7-10 Last administered on 12/24/16 00:48; Admin Dose 0.5 MG; Start 12/23/16 at 19:00 Vancomycin HCl (Vanco Iv Per Pharmacy) PER PHARMACY DOSING NOTE XX ; Start at 10:00 Heparin Sodium (Porcine) (Heparin (5000 Units/0.5 ml)) 5,000 unit Q12 SC Last administered on 12/27/16 09:58; Admin Dose 5,000 UNIT; Start 12/24/16 at 21:00 Epoetin Spencer (Epogen (Esrd)) 10,000 units MoWeFr@17 SC Last administered on 12/25 17:26; Admin Dose 10,000 UNITS; Start 12/25/16 at 17:00 Baclofen (Lioresal) 5 mg TID PRN PO HICCUPS Last administered on 12/26/16 21:24 ; Admin Dose 5 MG; Start 12/25/16 at 14:00 Miscellaneous Information (*Rx Drug Level Order Reminder*) VANCOMYCIN RANDOM LEVEL IN AM ONCE ONCE XX ; Start 12/28/16 at 05:00; Stop 12/28/16 at 05:01 VALENTE SEGUNDO MD Dec 27, 2016 18:10
[2016-12-27 19:18] VITALS: BP 149/70; RESP 18
[2016-12-27] MEDS: ATORVASTATIN 40 MG TAB PO SCH (20:30)
[2016-12-27] MEDS: TERAZOSIN 2 MG CAP PO SCH (20:30)
[2016-12-28] VITALS (9 sets, daily range): BP systolic 133–158; BP diastolic 69–84; PULSE 60–65; RESP 18–20
[2016-12-28 05:40] LABS: ADD SCAN DIFF NO
[2016-12-28 05:51] LABS: BASOPHILS % 0.3 % (0.0-2.0); EOSINOPHILS # 0.2 10^3/ul (0.0-0.5); EOSINOPHILS % 2.2 % (0.0-7.0); HEMATOCRIT 27.7 % (42.0-52.0); HEMOGLOBIN 8.7 g/dl (14.0-18.0); LYMPHOCYTES # 0.9 10^3/ul (0.8-2.9); LYMPHOCYTES % 9.2 % (15.0-51.0); MEAN CORPUSCULAR HEMOGLOBIN 31.2 pg (29.0-33.0); MEAN CORPUSCULAR HGB CONC 31.4 g/dl (32.0-37.0); MEAN CORPUSCULAR VOLUME 99.3 fl (82.0-101.0); MEAN PLATELET VOLUME 9.9 fl (7.4-10.4); MONOCYTES % 10.1 % (0.0-11.0); NEUTROPHIL # 7.8 10^3/ul (1.6-7.5); NEUTROPHILS % 77.6 % (39.0-77.0); PLATELET COUNT 288 10^3/UL (140-415); RED BLOOD COUNT 2.79 10^6/ul (4.70-6.10); RED CELL DISTRIBUTION WIDTH 14.6 % (11.5-14.5)
[2016-12-28 06:11] LABS: ALBUMIN 4.2 g/dl (3.3-4.9); ALBUMIN/GLOBULIN RATIO 1.27; CALCIUM 8.9 mg/dl (8.4-10.2); CREATININE 8.04 mg/dl (0.61-1.24); POTASSIUM 5.5 mmol/L (3.5-5.1); TOTAL PROTEIN 7.5 g/dl (6.1-8.1)
[2016-12-28 06:33] LABS: INR 1.15; PROTIME 14.7 Sec (12.2-14.2); PT RATIO 1.1
[2016-12-28] MEDS: SEVELAMER CARBONATE 0.8 GM PKT PO SCH ×3 (08:01→17:13)
[2016-12-28] MEDS: CLOPIDOGREL 75 MG TAB PO SCH (08:02)
[2016-12-28] MEDS: CITALOPRAM 20 MG TAB PO SCH (08:02)
[2016-12-28] MEDS: CALCIUM CARBONATE 500 MG CHEW TAB PO SCH ×4 (08:02→21:26)
[2016-12-28] MEDS: AL HYDROX/MG HYDROX/SIMETH 30 ML CUP PO SCH ×2 (08:06→12:04)
[2016-12-28] MEDS: HEPARIN 5,000 UNIT/0.5 ML VIAL SC SCH ×2 (08:08→21:29)
[2016-12-28] MEDS: LABETALOL 200 MG TAB PO SCH ×2 (08:10→21:26)
[2016-12-28] MEDS: AMLODIPINE 10 MG TAB PO SCH (08:10)
[2016-12-28] MEDS: INSULIN ASPART [NOVOLOG] 3 ML PEN SC SCH ×4 (08:14→21:00)
[2016-12-28] MEDS: INSULIN GLARGINE [LANtus] 3 ML PEN SC SCH (08:19)
--- NOTE | 2016-12-28 13:20 | CONS ---
Date/Time of Note Date/Time of Note DATE: 12/28/16 TIME: 13:12 Assessment/Plan Assessment/Plan Chief Complaint/Hosp Course 1. End-stage renal disease. The patient is having a hemodialysis treatment now . His next dialysis should be Wednesday. His routine hemodialysis schedule is Wednesday. 2. He is without pain. His venous Dopplers of his leg were both negative for DVT. 3. Fever has resolved. He was growing several organisms from blood cultures done on admission. Repeat blood cultures have been negative. He is on appropriate antibiotics. He is having an infection workup to try and determine the source of his infection. 4. Right CVA with left hemiparesis in 2012 5. Hypertension 6. Hyperlipidemia 7. Anemia, I will start Epogen. 8. Hiccups, I will start baclofen as needed. Problems: Consultation Date/Type/Reason Admit Date/Time December 23, 2016 at 15:25 Type of Consultation: renal 24 HR Interval Summary Free Text/Dictation He is now having his hemodialysis treatment. He is tolerating the procedure well. He denies pain. Constitutional: improved, no complaints Exam/Review of Systems Vital Signs Vitals Vital Signs Date Time Temp Pulse Resp B/P Pulse Ox O2 Delivery O2 Flow Rate FiO2 12/28/16 08:17 98.3 62 18 150/72 96 12/25/16 00:57 Nasal Cannula 2.0 Intake and Output 12/27/16 12/27/16 12/28/16 14:59 22:59 06:59 Intake Total 940 ml Balance 940 ml Exam Constitutional: alert, frail, oriented Respiratory: clear to auscultation, normal air movement Cardiovascular: regular rate and rhythm Gastrointestinal: soft Musculoskeletal: nl extremities to inspection Results Result Diagram: 12/28/16 0527 12/28/16 0527 Results 24 hrs Laboratory Tests Test 12/27/16 17:26 12/27/16 20:29 12/28/16 02:26 12/28/16 05:27 Bedside Glucose 129 204 132 White Blood Count 10.0 Red Blood Count 2.79 L Hemoglobin 8.7 L Hematocrit 27.7 L Mean Corpuscular Volume 99.3 Mean Corpuscular Hemoglobin 31.2 Mean Corpuscular Hemoglobin Concent 31.4 L Red Cell Distribution Width 14.6 H Platelet Count 288 Mean Platelet Volume 9.9 Neutrophils % 77.6 H Lymphocytes % 9.2 L Monocytes % 10.1 Eosinophils % 2.2 Basophils % 0.3 Nucleated Red Blood Cells % 0.0 Neutrophils # 7.8 H Lymphocytes # 0.9 Monocytes # 1.0 H Eosinophils # 0.2 Basophils # 0.0 Nucleated Red Blood Cells # 0.0 Prothrombin Time 14.7 H Prothrombin Time Ratio 1.1 INR International Normalized Ratio 1.15 Activated Partial Thromboplast Time 36.0 H Sodium Level 130 L Potassium Level 5.5 H Chloride Level 88 L Carbon Dioxide Level 30 Anion Gap 18 H Blood Urea Nitrogen 56 H Creatinine 8.04 H Glucose Level 146 Calcium Level 8.9 Total Bilirubin 0.0 L Direct Bilirubin 0.00 Indirect Bilirubin 0.0 Aspartate Amino Transf (AST/SGOT) 44 Alanine Aminotransferase (ALT/SGPT) 61 Alkaline Phosphatase 221 H Total Protein 7.5 Albumin 4.2 Globulin 3.30 H Albumin/Globulin Ratio 1.27 Random Vancomycin Level 13.6 Test 12/28/16 08:13 12/28/16 12:04 Bedside Glucose 121 140 Medications Medications Current Medications Amlodipine Besylate (Norvasc) 10 mg DAILY PO Last administered on 12/27/16 09: 56; Admin Dose 10 MG; Start 12/24/16 at 09:00 Atorvastatin Calcium (Lipitor) 40 mg QHS PO Last administered on 12/27/16 20:30 ; Admin Dose 40 MG; Start 12/23/16 at 21:00 Citalopram Hydrobromide (Celexa) 20 mg DAILY PO Last administered on 12/28/16 08:02; Admin Dose 20 MG; Start 12/24/16 at 09:00 Clopidogrel Bisulfate (plaVIX) 75 mg DAILY PO Last administered on 12/28/16 08: 02; Admin Dose 75 MG; Start 12/24/16 at 09:00 Insulin Glargine (Lantus) 20 unit QAM SC Last administered on 12/28/16 08:19; Admin Dose 20 UNIT; Start 12/24/16 at 09:00 Labetalol HCl (Normodyne) 200 mg BID PO Last administered on 12/27/16 20:46; Admin Dose 200 MG; Start 12/23/16 at 21:00 Terazosin HCl (Hytrin) 2 mg HS PO Last administered on 12/27/16 20:30; Admin Dose 2 MG; Start 12/23/16 at 21:00 Tramadol HCl (Ultram) 50 mg Q8 PRN PO PAIN; Start 12/23/16 at 17:30 Docusate Sodium (Colace) 100 mg Q12H PRN PO CONSTIPATION; Start 12/23/16 at 17: 30 Magnesium Hydroxide (Milk Of Mag) 30 ml DAILY PRN PO CONSTIPATION; Start at 17:30 Bisacodyl (Dulcolax) 5 mg DAILY PRN PO CONSTIPATION; Start 12/23/16 at 17:30 Bisacodyl (Dulcolax Supp) 10 mg DAILY PRN [place] CONSTIPATION; Start 12/23/16 at 17 :30 Al Hydrox/Mg Hydrox/Simethicone (Mag-Al Plus) 30 ml QID PO Last administered on 12/28/16 12:04; Admin Dose 30 ML; Start 12/23/16 at 21:00 Calcium Carbonate (Tums) 500 mg QID PO Last administered on 12/28/16 12:04; Admin Dose 500 MG; Start 12/23/16 at 21:00 Miscellaneous Information 1 ea NOTE XX ; Start 12/23/16 at 17:30 Glucose (Glutose) 15 gm Q15M PRN PO DECREASED GLUCOSE; Start 12/23/16 at 17:30 Glucose (Glutose) 22.5 gm Q15M PRN PO DECREASED GLUCOSE; Start 12/23/16 at 17: 30 Dextrose (D50w Syringe) 25 ml Q15M PRN IV DECREASED GLUCOSE; Start 12/23/16 at 17:30 Dextrose (D50w Syringe) 50 ml Q15M PRN IV DECREASED GLUCOSE; Start 12/23/16 at 17:30 Glucagon (Glucagen) 1 mg Q15M PRN IM DECREASED GLUCOSE; Start 12/23/16 at 17:30 Glucose (Glutose) 15 gm Q15M PRN BUCCAL DECREASED GLUCOSE; Start 12/23/16 at 17 :30 Acetaminophen/ Hydrocodone Bitart ([place] (5/325)) 1 tab Q4H PRN PO PAIN LEVEL 6 -10 Last administered on 12/24/16 15:35; Admin Dose 1 TAB; Start 12/23/16 at 19: 00 Hydromorphone HCl (Dilaudid) 0.5 mg Q4H PRN IV PAIN LEVEL 7-10 Last administered on 12/24/16 00:48; Admin Dose 0.5 MG; Start 12/23/16 at 19:00 Vancomycin HCl (Vanco Iv Per Pharmacy) PER PHARMACY DOSING NOTE XX ; Start at 10:00 Heparin Sodium (Porcine) (Heparin (5000 Units/0.5 ml)) 5,000 unit Q12 SC Last administered on 12/28/16 08:08; Admin Dose 5,000 UNIT; Start 12/24/16 at 21:00 Epoetin Spencer (Epogen (Esrd)) 10,000 units MoWeFr@17 SC Last administered on 12/25 17:26; Admin Dose 10,000 UNITS; Start 12/25/16 at 17:00 Baclofen (Lioresal) 5 mg TID PRN PO HICCUPS Last administered on 12/26/16 21:24 ; Admin Dose 5 MG; Start 12/25/16 at 14:00 JOSE MARIA RIOS MD Dec 28, 2016 13:20
--- NOTE | 2016-12-28 13:54 | CONS ---
Date/Time of Note Date/Time of Note DATE: 12/28/16 TIME: 13:53 Assessment/Plan Assessment/Plan Chief Complaint/Hosp Course SUBJECTIVE: Patient is alert. Denies pain, no fevers overnight. MICROBIOLOGY: Blood cultures since admission grew Staphylococcus aureus and streptococcus species. Repeat blood cultures from yesterday growing gram- positive cocci in pairs and clusters. INDWELLINGS: The patient has a left upper extremity AV fistula. ANTIMICROBIALS: IV vancomycin. DIAGNOSTICS: Chest x-ray on admission revealed moderate cardiomegaly. Extremity venous study revealed no evidence of DVT. PHYSICAL EXAMINATION: GENERAL: Fragile, well-developed, elderly man who is alert, in no distress. HEENT: Head atraumatic, normocephalic. Sclerae anicteric. Buccal mucosa dry. NECK: Supple. CHEST: Rise symmetrical. Breath sounds clear. HEART: S1, S2. ABDOMEN: Soft. Bowel tones present. EXTREMITIES: Left upper extremity AV fistula patent. ASSESSMENT: 1. Polymicrobial bacteremia, etiology unclear, possibly secondary to infected arteriovenous fistula, with repeat blood cultures remain negative and 2D echo revealed no evidence for vegetations. 2. End-stage renal disease, hemodialysis dependent. 3. Diabetes. 4. Hypertension. PLAN: The patient remains hemodynamically stable. Repeat bld cx 12/26 negative, 2D echo revealed no vegetations. The patient is on appropriate antimicrobials. Pending WBC labeled nuclear scan [facility] staff Problems: Consultation Date/Type/Reason Admit Date/Time December 23, 2016 at 15:25 Type of Consultation: id Exam/Review of Systems Vital Signs Vitals Vital Signs Date Time Temp Pulse Resp B/P Pulse Ox O2 Delivery O2 Flow Rate FiO2 12/28/16 08:17 98.3 62 18 150/72 96 12/25/16 00:57 Nasal Cannula 2.0 Intake and Output 12/27/16 12/27/16 12/28/16 15:00 23:00 07:00 Intake Total 940 ml Balance 940 ml Results Result Diagram: 12/28/16 0527 12/28/16 0527 Results 24 hrs Laboratory Tests Test 12/27/16 17:26 12/27/16 20:29 12/28/16 02:26 12/28/16 05:27 Bedside Glucose 129 204 132 White Blood Count 10.0 Red Blood Count 2.79 L Hemoglobin 8.7 L Hematocrit 27.7 L Mean Corpuscular Volume 99.3 Mean Corpuscular Hemoglobin 31.2 Mean Corpuscular Hemoglobin Concent 31.4 L Red Cell Distribution Width 14.6 H Platelet Count 288 Mean Platelet Volume 9.9 Neutrophils % 77.6 H Lymphocytes % 9.2 L Monocytes % 10.1 Eosinophils % 2.2 Basophils % 0.3 Nucleated Red Blood Cells % 0.0 Neutrophils # 7.8 H Lymphocytes # 0.9 Monocytes # 1.0 H Eosinophils # 0.2 Basophils # 0.0 Nucleated Red Blood Cells # 0.0 Prothrombin Time 14.7 H Prothrombin Time Ratio 1.1 INR International Normalized Ratio 1.15 Activated Partial Thromboplast Time 36.0 H Sodium Level 130 L Potassium Level 5.5 H Chloride Level 88 L Carbon Dioxide Level 30 Anion Gap 18 H Blood Urea Nitrogen 56 H Creatinine 8.04 H Glucose Level 146 Calcium Level 8.9 Total Bilirubin 0.0 L Direct Bilirubin 0.00 Indirect Bilirubin 0.0 Aspartate Amino Transf (AST/SGOT) 44 Alanine Aminotransferase (ALT/SGPT) 61 Alkaline Phosphatase 221 H Total Protein 7.5 Albumin 4.2 Globulin 3.30 H Albumin/Globulin Ratio 1.27 Random Vancomycin Level 13.6 Test 12/28/16 08:13 12/28/16 12:04 Bedside Glucose 121 140 Medications Medications Current Medications Amlodipine Besylate (Norvasc) 10 mg DAILY PO Last administered on 12/27/16 09: 56; Admin Dose 10 MG; Start 12/24/16 at 09:00 Atorvastatin Calcium (Lipitor) 40 mg QHS PO Last administered on 12/27/16 20:30 ; Admin Dose 40 MG; Start 12/23/16 at 21:00 Citalopram Hydrobromide (Celexa) 20 mg DAILY PO Last administered on 12/28/16 08:02; Admin Dose 20 MG; Start 12/24/16 at 09:00 Clopidogrel Bisulfate (plaVIX) 75 mg DAILY PO Last administered on 12/28/16 08: 02; Admin Dose 75 MG; Start 12/24/16 at 09:00 Insulin Glargine (Lantus) 20 unit QAM SC Last administered on 12/28/16 08:19; Admin Dose 20 UNIT; Start 12/24/16 at 09:00 Labetalol HCl (Normodyne) 200 mg BID PO Last administered on 12/27/16 20:46; Admin Dose 200 MG; Start 12/23/16 at 21:00 Terazosin HCl (Hytrin) 2 mg HS PO Last administered on 12/27/16 20:30; Admin Dose 2 MG; Start 12/23/16 at 21:00 Tramadol HCl (Ultram) 50 mg Q8 PRN PO PAIN; Start 12/23/16 at 17:30 Docusate Sodium (Colace) 100 mg Q12H PRN PO CONSTIPATION; Start 12/23/16 at 17: 30 Magnesium Hydroxide (Milk Of Mag) 30 ml DAILY PRN PO CONSTIPATION; Start at 17:30 Bisacodyl (Dulcolax) 5 mg DAILY PRN PO CONSTIPATION; Start 12/23/16 at 17:30 Bisacodyl (Dulcolax Supp) 10 mg DAILY PRN [place] CONSTIPATION; Start 12/23/16 at 17 :30 Al Hydrox/Mg Hydrox/Simethicone (Mag-Al Plus) 30 ml QID PO Last administered on 12/28/16 12:04; Admin Dose 30 ML; Start 12/23/16 at 21:00 Calcium Carbonate (Tums) 500 mg QID PO Last administered on 12/28/16 12:04; Admin Dose 500 MG; Start 12/23/16 at 21:00 Miscellaneous Information 1 ea NOTE XX ; Start 12/23/16 at 17:30 Glucose (Glutose) 15 gm Q15M PRN PO DECREASED GLUCOSE; Start 12/23/16 at 17:30 Glucose (Glutose) 22.5 gm Q15M PRN PO DECREASED GLUCOSE; Start 12/23/16 at 17: 30 Dextrose (D50w Syringe) 25 ml Q15M PRN IV DECREASED GLUCOSE; Start 12/23/16 at 17:30 Dextrose (D50w Syringe) 50 ml Q15M PRN IV DECREASED GLUCOSE; Start 12/23/16 at 17:30 Glucagon (Glucagen) 1 mg Q15M PRN IM DECREASED GLUCOSE; Start 12/23/16 at 17:30 Glucose (Glutose) 15 gm Q15M PRN BUCCAL DECREASED GLUCOSE; Start 12/23/16 at 17 :30 Acetaminophen/ Hydrocodone Bitart ([place] (5/325)) 1 tab Q4H PRN PO PAIN LEVEL 6 -10 Last administered on 12/24/16 15:35; Admin Dose 1 TAB; Start 12/23/16 at 19: 00 Hydromorphone HCl (Dilaudid) 0.5 mg Q4H PRN IV PAIN LEVEL 7-10 Last administered on 12/24/16 00:48; Admin Dose 0.5 MG; Start 12/23/16 at 19:00 Vancomycin HCl (Vanco Iv Per Pharmacy) PER PHARMACY DOSING NOTE XX ; Start at 10:00 Heparin Sodium (Porcine) (Heparin (5000 Units/0.5 ml)) 5,000 unit Q12 SC Last administered on 12/28/16 08:08; Admin Dose 5,000 UNIT; Start 12/24/16 at 21:00 Epoetin [place] (Epogen (Esrd)) 10,000 units MoWeFr@17 SC Last administered on 12/25 17:26; Admin Dose 10,000 UNITS; Start 12/25/16 at 17:00 Baclofen (Lioresal) 5 mg TID PRN PO HICCUPS Last administered on 12/26/16 21:24 ; Admin Dose 5 MG; Start 12/25/16 at 14:00 ALDA BARBER NP Dec 28, 2016 13:54
--- NOTE | 2016-12-28 16:10 | PN ---
Date/Time of Note Date/Time of Note DATE: 12/28/16 TIME: 16:07 Assessment/Plan VTE Prophylaxis VTE Prophylaxis Intervention: LMWH Lines/Catheters IV [facility] Saline Lock Urinary Cath still in place: No Assessment/Plan Chief Complaint/Hosp Course Subjective: No fever. Tolerating diet. No ill contacts. No recent dental work. Objective: Vital signs stable Physical exam No pallor adenopathy Regular; positive murmur Clear Benign No edema/lymphadenopathy. Assessment and plan 1. Sepsis/staph aureus. Source? Anticipate discharge home once okay with ID. 2. ESRD MWF 3. Diabetes/metabolic syndrome/dyslipidemia/hypertension 4. Chronic coronary disease; old [place]? 5. Depression 6. Previous left-sided stroke 7. Anemia anemia 8. Aortic stenosis-mild 9. Secondary pulmonary hypertension 10. Osteoporosis Problems: Exam/Review of Systems Vital Signs Vitals Vital Signs Date Time Temp Pulse Resp B/P Pulse Ox O2 Delivery O2 Flow Rate FiO2 12/28/16 14:10 65 12/28/16 11:40 18 12/28/16 08:17 98.3 150/72 96 12/25/16 00:57 Nasal Cannula 2.0 Intake and Output 12/27/16 12/27/16 12/28/16 15:00 23:00 07:00 Intake Total 940 ml Balance 940 ml Results Result Diagram: 12/28/16 0527 12/28/16 0527 Results 24 hrs Laboratory Tests Test 12/27/16 17:26 12/27/16 20:29 12/28/16 02:26 12/28/16 05:27 Bedside Glucose 129 204 132 White Blood Count 10.0 Red Blood Count 2.79 L Hemoglobin 8.7 L Hematocrit 27.7 L Mean Corpuscular Volume 99.3 Mean Corpuscular Hemoglobin 31.2 Mean Corpuscular Hemoglobin Concent 31.4 L Red Cell Distribution Width 14.6 H Platelet Count 288 Mean Platelet Volume 9.9 Neutrophils % 77.6 H Lymphocytes % 9.2 L Monocytes % 10.1 Eosinophils % 2.2 Basophils % 0.3 Nucleated Red Blood Cells % 0.0 Neutrophils # 7.8 H Lymphocytes # 0.9 Monocytes # 1.0 H Eosinophils # 0.2 Basophils # 0.0 Nucleated Red Blood Cells # 0.0 Prothrombin Time 14.7 H Prothrombin Time Ratio 1.1 INR International Normalized Ratio 1.15 Activated Partial Thromboplast Time 36.0 H Sodium Level 130 L Potassium Level 5.5 H Chloride Level 88 L Carbon Dioxide Level 30 Anion Gap 18 H Blood Urea Nitrogen 56 H Creatinine 8.04 H Glucose Level 146 Calcium Level 8.9 Total Bilirubin 0.0 L Direct Bilirubin 0.00 Indirect Bilirubin 0.0 Aspartate Amino Transf (AST/SGOT) 44 Alanine Aminotransferase (ALT/SGPT) 61 Alkaline Phosphatase 221 H Total Protein 7.5 Albumin 4.2 Globulin 3.30 H Albumin/Globulin Ratio 1.27 Random Vancomycin Level 13.6 Test 12/28/16 08:13 12/28/16 12:04 Bedside Glucose 121 140 Medications Medications Current Medications Amlodipine Besylate (Norvasc) 10 mg DAILY PO Last administered on 12/27/16 09: 56; Admin Dose 10 MG; Start 12/24/16 at 09:00 Atorvastatin Calcium (Lipitor) 40 mg QHS PO Last administered on 12/27/16 20:30 ; Admin Dose 40 MG; Start 12/23/16 at 21:00 Citalopram Hydrobromide (Celexa) 20 mg DAILY PO Last administered on 12/28/16 08:02; Admin Dose 20 MG; Start 12/24/16 at 09:00 Clopidogrel Bisulfate (plaVIX) 75 mg DAILY PO Last administered on 12/28/16 08: 02; Admin Dose 75 MG; Start 12/24/16 at 09:00 Insulin Glargine (Lantus) 20 unit QAM SC Last administered on 12/28/16 08:19; Admin Dose 20 UNIT; Start 12/24/16 at 09:00 Labetalol HCl (Normodyne) 200 mg BID PO Last administered on 12/27/16 20:46; Admin Dose 200 MG; Start 12/23/16 at 21:00 Terazosin HCl (Hytrin) 2 mg HS PO Last administered on 12/27/16 20:30; Admin Dose 2 MG; Start 12/23/16 at 21:00 Tramadol HCl (Ultram) 50 mg Q8 PRN PO PAIN; Start 12/23/16 at 17:30 Docusate Sodium (Colace) 100 mg Q12H PRN PO CONSTIPATION; Start 12/23/16 at 17: 30 Magnesium Hydroxide (Milk Of Mag) 30 ml DAILY PRN PO CONSTIPATION; Start at 17:30 Bisacodyl (Dulcolax) 5 mg DAILY PRN PO CONSTIPATION; Start 12/23/16 at 17:30 Bisacodyl (Dulcolax Supp) 10 mg DAILY PRN [place] CONSTIPATION; Start 12/23/16 at 17 :30 Al Hydrox/Mg Hydrox/Simethicone (Mag-Al Plus) 30 ml QID PO Last administered on 12/28/16 12:04; Admin Dose 30 ML; Start 12/23/16 at 21:00 Calcium Carbonate (Tums) 500 mg QID PO Last administered on 12/28/16 12:04; Admin Dose 500 MG; Start 12/23/16 at 21:00 Miscellaneous Information 1 ea NOTE XX ; Start 12/23/16 at 17:30 Glucose (Glutose) 15 gm Q15M PRN PO DECREASED GLUCOSE; Start 12/23/16 at 17:30 Glucose (Glutose) 22.5 gm Q15M PRN PO DECREASED GLUCOSE; Start 12/23/16 at 17: 30 Dextrose (D50w Syringe) 25 ml Q15M PRN IV DECREASED GLUCOSE; Start 12/23/16 at 17:30 Dextrose (D50w Syringe) 50 ml Q15M PRN IV DECREASED GLUCOSE; Start 12/23/16 at 17:30 Glucagon (Glucagen) 1 mg Q15M PRN IM DECREASED GLUCOSE; Start 12/23/16 at 17:30 Glucose (Glutose) 15 gm Q15M PRN BUCCAL DECREASED GLUCOSE; Start 12/23/16 at 17 :30 Acetaminophen/ Hydrocodone Bitart ([place] (5/325)) 1 tab Q4H PRN PO PAIN LEVEL 6 -10 Last administered on 12/24/16 15:35; Admin Dose 1 TAB; Start 12/23/16 at 19: 00 Hydromorphone HCl (Dilaudid) 0.5 mg Q4H PRN IV PAIN LEVEL 7-10 Last administered on 12/24/16 00:48; Admin Dose 0.5 MG; Start 12/23/16 at 19:00 Vancomycin HCl (Vanco Iv Per Pharmacy) PER PHARMACY DOSING NOTE XX ; Start at 10:00 Heparin Sodium (Porcine) (Heparin (5000 Units/0.5 ml)) 5,000 unit Q12 SC Last administered on 12/28/16 08:08; Admin Dose 5,000 UNIT; Start 12/24/16 at 21:00 Epoetin Spencer (Epogen (Esrd)) 10,000 units MoWeFr@17 SC Last administered on 12/25 17:26; Admin Dose 10,000 UNITS; Start 12/25/16 at 17:00 Baclofen (Lioresal) 5 mg TID PRN PO HICCUPS Last administered on 12/26/16 21:24 ; Admin Dose 5 MG; Start 12/25/16 at 14:00 TANVI VALDES MD Dec 28, 2016 16:10
[2016-12-28] MEDS ORDERED: AL HYDROX/MG HYDROX/SIMETH 30 ML CUP PO PRN (16:30)
[2016-12-28] MEDS: EPOETIN 10000 UNITS/1 ML INJ (ESRD) SC SCH (17:17)
[2016-12-28] MEDS ORDERED: VANCOMYCIN 1 GM in NS 250 ML IVPB SCH (17:30)
[2016-12-28] MEDS: ATORVASTATIN 40 MG TAB PO SCH (21:24)
[2016-12-28] MEDS: TERAZOSIN 2 MG CAP PO SCH (21:26)
[2016-12-29 06:28] LABS: ADD SCAN DIFF NO
[2016-12-29 06:31] LABS: BASOPHILS % 0.3 % (0.0-2.0); EOSINOPHILS # 0.2 10^3/ul (0.0-0.5); EOSINOPHILS % 2.2 % (0.0-7.0); HEMATOCRIT 27.6 % (42.0-52.0); HEMOGLOBIN 8.6 g/dl (14.0-18.0); LYMPHOCYTES # 0.9 10^3/ul (0.8-2.9); LYMPHOCYTES % 9.1 % (15.0-51.0); MEAN CORPUSCULAR HEMOGLOBIN 31.7 pg (29.0-33.0); MEAN CORPUSCULAR HGB CONC 31.2 g/dl (32.0-37.0); MEAN CORPUSCULAR VOLUME 101.8 fl (82.0-101.0); MEAN PLATELET VOLUME 9.8 fl (7.4-10.4); MONOCYTES % 10.3 % (0.0-11.0); NEUTROPHIL # 7.5 10^3/ul (1.6-7.5); NEUTROPHILS % 77.5 % (39.0-77.0); PLATELET COUNT 323 10^3/UL (140-415); RED BLOOD COUNT 2.71 10^6/ul (4.70-6.10); RED CELL DISTRIBUTION WIDTH 14.5 % (11.5-14.5); WHITE BLOOD COUNT 9.7 10^3/ul (4.8-10.8)
[2016-12-29 07:15] LABS: CALCIUM 8.4 mg/dl (8.4-10.2); CREATININE 5.68 mg/dl (0.61-1.24)
[2016-12-29 07:53] VITALS: BP 147/66; RESP 20
--- NOTE | 2016-12-29 08:06 | CONS ---
Date/Time of Note Date/Time of Note DATE: 12/29/16 TIME: 08:05 Assessment/Plan Assessment/Plan Chief Complaint/Hosp Course 1. End-stage renal disease. His next dialysis should be tomorrow , Wednesday. His routine hemodialysis schedule is Wednesday. 2. He is without pain. His venous Dopplers of his leg were both negative for DVT. 3. Fever has resolved. He was growing several organisms from blood cultures done on admission. Repeat blood cultures have been negative. He is on appropriate antibiotics. He is having an infection workup to try and determine the source of his infection. 4. Right CVA with left hemiparesis in 2012 5. Hypertension 6. Hyperlipidemia 7. Anemia, I will start Epogen. 8. Hiccups, I will start baclofen as needed. Problems: Consultation Date/Type/Reason Admit Date/Time December 23, 2016 at 15:25 Type of Consultation: renal 24 HR Interval Summary Constitutional: improved, no complaints Exam/Review of Systems Vital Signs Vitals Vital Signs Date Time Temp Pulse Resp B/P Pulse Ox O2 Delivery O2 Flow Rate FiO2 12/29/16 07:53 97.4 65 20 147/66 98 Intake and Output 12/28/16 12/28/16 12/29/16 15:00 23:00 07:00 Intake Total 200 ml 1090 ml 720 ml Output Total 250 ml Balance 200 ml 840 ml 720 ml Exam Constitutional: alert, oriented Psych: no complaints Respiratory: clear to auscultation, normal air movement Cardiovascular: regular rate and rhythm Gastrointestinal: soft Musculoskeletal: nl extremities to inspection Results Result Diagram: 12/29/16 0540 12/29/16 0540 Results 24 hrs Laboratory Tests Test 12/28/16 08:13 12/28/16 12:04 12/28/16 17:22 12/28/16 21:25 Bedside Glucose 121 140 134 134 Test 12/29/16 05:40 White Blood Count 9.7 Red Blood Count 2.71 L Hemoglobin 8.6 L Hematocrit 27.6 L Mean Corpuscular Volume 101.8 H Mean Corpuscular Hemoglobin 31.7 Mean Corpuscular Hemoglobin Concent 31.2 L Red Cell Distribution Width 14.5 Platelet Count 323 Mean Platelet Volume 9.8 Neutrophils % 77.5 H Lymphocytes % 9.1 L Monocytes % 10.3 Eosinophils % 2.2 Basophils % 0.3 Nucleated Red Blood Cells % 0.0 Neutrophils # 7.5 Lymphocytes # 0.9 Monocytes # 1.0 H Eosinophils # 0.2 Basophils # 0.0 Nucleated Red Blood Cells # 0.0 Sodium Level 132 L Potassium Level 4.0 Chloride Level 94 L Carbon Dioxide Level 29 Anion Gap 13 Blood Urea Nitrogen 35 #H Creatinine 5.68 #H Glucose Level 86 # Calcium Level 8.4 Medications Medications Current Medications Amlodipine Besylate (Norvasc) 10 mg DAILY PO Last administered on 12/27/16 09: 56; Admin Dose 10 MG; Start 12/24/16 at 09:00 Atorvastatin Calcium (Lipitor) 40 mg QHS PO Last administered on 12/28/16 21:24 ; Admin Dose 40 MG; Start 12/23/16 at 21:00 Citalopram Hydrobromide (Celexa) 20 mg DAILY PO Last administered on 12/28/16 08:02; Admin Dose 20 MG; Start 12/24/16 at 09:00 Clopidogrel Bisulfate (plaVIX) 75 mg DAILY PO Last administered on 12/28/16 08: 02; Admin Dose 75 MG; Start 12/24/16 at 09:00 Insulin Glargine (Lantus) 20 unit QAM SC Last administered on 12/28/16 08:19; Admin Dose 20 UNIT; Start 12/24/16 at 09:00 Labetalol HCl (Normodyne) 200 mg BID PO Last administered on 12/28/16 21:26; Admin Dose 200 MG; Start 12/23/16 at 21:00 Terazosin HCl (Hytrin) 2 mg HS PO Last administered on 12/28/16 21:26; Admin Dose 2 MG; Start 12/23/16 at 21:00 Tramadol HCl (Ultram) 50 mg Q8 PRN PO PAIN; Start 12/23/16 at 17:30 Docusate Sodium (Colace) 100 mg Q12H PRN PO CONSTIPATION; Start 12/23/16 at 17: 30 Magnesium Hydroxide (Milk Of Mag) 30 ml DAILY PRN PO CONSTIPATION; Start at 17:30 Bisacodyl (Dulcolax) 5 mg DAILY PRN PO CONSTIPATION; Start 12/23/16 at 17:30 Bisacodyl (Dulcolax Supp) 10 mg DAILY PRN [place] CONSTIPATION; Start 12/23/16 at 17 :30 Calcium Carbonate (Tums) 500 mg QID PO Last administered on 12/28/16 21:26; Admin Dose 500 MG; Start 12/23/16 at 21:00 Miscellaneous Information 1 ea NOTE XX ; Start 12/23/16 at 17:30 Glucose (Glutose) 15 gm Q15M PRN PO DECREASED GLUCOSE; Start 12/23/16 at 17:30 Glucose (Glutose) 22.5 gm Q15M PRN PO DECREASED GLUCOSE; Start 12/23/16 at 17: 30 Dextrose (D50w Syringe) 25 ml Q15M PRN IV DECREASED GLUCOSE; Start 12/23/16 at 17:30 Dextrose (D50w Syringe) 50 ml Q15M PRN IV DECREASED GLUCOSE; Start 12/23/16 at 17:30 Glucagon (Glucagen) 1 mg Q15M PRN IM DECREASED GLUCOSE; Start 12/23/16 at 17:30 Glucose (Glutose) 15 gm Q15M PRN BUCCAL DECREASED GLUCOSE; Start 12/23/16 at 17 :30 Acetaminophen/ Hydrocodone Bitart ([place] (5/325)) 1 tab Q4H PRN PO PAIN LEVEL 6 -10 Last administered on 12/24/16 15:35; Admin Dose 1 TAB; Start 12/23/16 at 19: 00 Hydromorphone HCl (Dilaudid) 0.5 mg Q4H PRN IV PAIN LEVEL 7-10 Last administered on 12/24/16 00:48; Admin Dose 0.5 MG; Start 12/23/16 at 19:00 Vancomycin HCl (Vanco Iv Per Pharmacy) PER PHARMACY DOSING NOTE XX ; Start at 10:00 Heparin Sodium (Porcine) (Heparin (5000 Units/0.5 ml)) 5,000 unit Q12 SC Last administered on 12/28/16 21:29; Admin Dose 5,000 UNIT; Start 12/24/16 at 21:00 Epoetin Spencer (Epogen (Esrd)) 10,000 units MoWeFr@17 SC Last administered on 12/28 17:17; Admin Dose 10,000 UNITS; Start 12/25/16 at 17:00 Baclofen (Lioresal) 5 mg TID PRN PO HICCUPS Last administered on 12/26/16t 21:24 ; Admin Dose 5 MG; Start 12/25/16 at 14:00 Al Hydrox/Mg Hydrox/Simethicone (Mag-Al Plus) 30 ml QID PRN PO HEARTBURN; Start 12/28/16 at 16:30 JOSE MARIA RIOS MD Dec 29, 2016 08:06
[2016-12-29] MEDS: INSULIN ASPART [NOVOLOG] 3 ML PEN SC SCH ×4 (08:08→20:27)
[2016-12-29] MEDS: INSULIN GLARGINE [LANtus] 3 ML PEN SC SCH (08:19)
[2016-12-29] MEDS: SEVELAMER CARBONATE 0.8 GM PKT PO SCH ×3 (08:22→17:14)
[2016-12-29] MEDS: CALCIUM CARBONATE 500 MG CHEW TAB PO SCH ×4 (08:22→20:26)
[2016-12-29] MEDS: CLOPIDOGREL 75 MG TAB PO SCH (08:23)
[2016-12-29] MEDS: CITALOPRAM 20 MG TAB PO SCH (08:23)
[2016-12-29] MEDS: AMLODIPINE 10 MG TAB PO SCH (08:24)
[2016-12-29] MEDS: LABETALOL 200 MG TAB PO SCH ×2 (08:24→20:26)
[2016-12-29] MEDS: HEPARIN 5,000 UNIT/0.5 ML VIAL SC SCH ×2 (08:30→20:35)
--- NOTE | 2016-12-29 12:13 | PN ---
Date/Time of Note Date/Time of Note DATE: 12/29/16 TIME: 12:12 Assessment/Plan VTE Prophylaxis VTE Prophylaxis Intervention: heparin, LMWH Lines/Catheters IV [facility] Saline Lock Urinary Cath still in place: No Assessment/Plan Chief Complaint/Hosp Course S: 12/28 no fever. Tolerating diet. No ill contacts. No recent dental work. 12/29 no distress, no injury or events O: Vss PE No pallor adenopathy Reg; positive murmur Clear Benign No edema/lymphadenopathy. A/P 1. Sepsis/staph aureus. Source? Anticipate discharge home once ok w ID. 2. ESRD MWF 3. Diabetes/metabolic syndrome/dyslipidemia/hypertension 4. Chr cad; old [place]? 5. Depression 6. Previous left-sided stroke 7. Anemia anemia 8. Aortic stenosis-mild 9. Secondary pulmonary hypertension 10. Osteoporosis Problems: Exam/Review of Systems Vital Signs Vitals Vital Signs Date Time Temp Pulse Resp B/P Pulse Ox O2 Delivery O2 Flow Rate FiO2 12/29/16 07:53 97.4 65 20 147/66 98 Intake and Output 12/28/16 12/28/16 12/29/16 15:00 23:00 07:00 Intake Total 200 ml 1090 ml 720 ml Output Total 250 ml Balance 200 ml 840 ml 720 ml Results Result Diagram: 12/29/16 0540 12/29/16 0540 Results 24 hrs Laboratory Tests Test 12/28/16 17:22 12/28/16 21:25 12/29/16 05:40 12/29/16 08:08 Bedside Glucose 134 134 91 White Blood Count 9.7 Red Blood Count 2.71 L Hemoglobin 8.6 L Hematocrit 27.6 L Mean Corpuscular Volume 101.8 H Mean Corpuscular Hemoglobin 31.7 Mean Corpuscular Hemoglobin Concent 31.2 L Red Cell Distribution Width 14.5 Platelet Count 323 Mean Platelet Volume 9.8 Neutrophils % 77.5 H Lymphocytes % 9.1 L Monocytes % 10.3 Eosinophils % 2.2 Basophils % 0.3 Nucleated Red Blood Cells % 0.0 Neutrophils # 7.5 Lymphocytes # 0.9 Monocytes # 1.0 H Eosinophils # 0.2 Basophils # 0.0 Nucleated Red Blood Cells # 0.0 Sodium Level 132 L Potassium Level 4.0 Chloride Level 94 L Carbon Dioxide Level 29 Anion Gap 13 Blood Urea Nitrogen 35 #H Creatinine 5.68 #H Glucose Level 86 # Calcium Level 8.4 Test 12/29/16 12:02 Bedside Glucose 141 Medications Medications Current Medications Amlodipine Besylate (Norvasc) 10 mg DAILY PO Last administered on 12/29/16 08: 24; Admin Dose 10 MG; Start 12/24/16 at 09:00 Atorvastatin Calcium (Lipitor) 40 mg QHS PO Last administered on 12/28/16 21:24 ; Admin Dose 40 MG; Start 12/23/16 at 21:00 Citalopram Hydrobromide (Celexa) 20 mg DAILY PO Last administered on 12/29/16 08:23; Admin Dose 20 MG; Start 12/24/16 at 09:00 Clopidogrel Bisulfate (plaVIX) 75 mg DAILY PO Last administered on 12/29/16 08: 23; Admin Dose 75 MG; Start 12/24/16 at 09:00 Insulin Glargine (Lantus) 20 unit QAM SC Last administered on 12/29/16 08:19; Admin Dose 20 UNIT; Start 12/24/16 at 09:00 Labetalol HCl (Normodyne) 200 mg BID PO Last administered on 12/29/16 08:24; Admin Dose 200 MG; Start 12/23/16 at 21:00 Terazosin HCl (Hytrin) 2 mg HS PO Last administered on 12/28/16 21:26; Admin Dose 2 MG; Start 12/23/16 at 21:00 Tramadol HCl (Ultram) 50 mg Q8 PRN PO PAIN; Start 12/23/16 at 17:30 Docusate Sodium (Colace) 100 mg Q12H PRN PO CONSTIPATION; Start 12/23/16 at 17: 30 Magnesium Hydroxide (Milk Of Mag) 30 ml DAILY PRN PO CONSTIPATION; Start at 17:30 Bisacodyl (Dulcolax) 5 mg DAILY PRN PO CONSTIPATION; Start 12/23/16 at 17:30 Bisacodyl (Dulcolax Supp) 10 mg DAILY PRN [place] CONSTIPATION; Start 12/23/16 at 17 :30 Calcium Carbonate (Tums) 500 mg QID PO Last administered on 12/29/16 08:22; Admin Dose 500 MG; Start 12/23/16 at 21:00 Miscellaneous Information 1 ea NOTE XX ; Start 12/23/16 at 17:30 Glucose (Glutose) 15 gm Q15M PRN PO DECREASED GLUCOSE; Start 12/23/16 at 17:30 Glucose (Glutose) 22.5 gm Q15M PRN PO DECREASED GLUCOSE; Start 12/23/16 at 17: 30 Dextrose (D50w Syringe) 25 ml Q15M PRN IV DECREASED GLUCOSE; Start 12/23/16 at 17:30 Dextrose (D50w Syringe) 50 ml Q15M PRN IV DECREASED GLUCOSE; Start 12/23/16 at 17:30 Glucagon (Glucagen) 1 mg Q15M PRN IM DECREASED GLUCOSE; Start 12/23/16 at 17:30 Glucose (Glutose) 15 gm Q15M PRN BUCCAL DECREASED GLUCOSE; Start 12/23/16 at 17 :30 Acetaminophen/ Hydrocodone Bitart ([place] (5/325)) 1 tab Q4H PRN PO PAIN LEVEL 6 -10 Last administered on 12/24/16 15:35; Admin Dose 1 TAB; Start 12/23/16 at 19: 00 Hydromorphone HCl (Dilaudid) 0.5 mg Q4H PRN IV PAIN LEVEL 7-10 Last administered on 12/24/16 00:48; Admin Dose 0.5 MG; Start 12/23/16 at 19:00 Vancomycin HCl (Vanco Iv Per Pharmacy) PER PHARMACY DOSING NOTE XX ; Start at 10:00 Heparin Sodium (Porcine) (Heparin (5000 Units/0.5 ml)) 5,000 unit Q12 SC Last administered on 12/29/16 08:30; Admin Dose 5,000 UNIT; Start 12/24/16 at 21:00 Epoetin Spencer (Epogen (Esrd)) 10,000 units MoWeFr@17 SC Last administered on 12/28 17:17; Admin Dose 10,000 UNITS; Start 12/25/16 at 17:00 Baclofen (Lioresal) 5 mg TID PRN PO HICCUPS Last administered on 12/26/16 21:24 ; Admin Dose 5 MG; Start 12/25/16 at 14:00 Al Hydrox/Mg Hydrox/Simethicone (Mag-Al Plus) 30 ml QID PRN PO HEARTBURN; Start 12/28/16 at 16:30 TANVI VALDES MD Dec 29, 2016 12:13
--- NOTE | 2016-12-29 13:57 | CONS ---
Date/Time of Note Date/Time of Note DATE: 12/29/16 TIME: 13:56 Assessment/Plan Assessment/Plan Chief Complaint/Hosp Course SUBJECTIVE: Patient is alert. Denies pain, no fevers overnight. MICROBIOLOGY: Blood cultures since admission grew Staphylococcus aureus and streptococcus species. Repeat blood cultures from yesterday growing gram- positive cocci in pairs and clusters. INDWELLINGS: The patient has a left upper extremity AV fistula. ANTIMICROBIALS: IV vancomycin. DIAGNOSTICS: Chest x-ray on admission revealed moderate cardiomegaly. Extremity venous study revealed no evidence of DVT. PHYSICAL EXAMINATION: GENERAL: Fragile, well-developed, elderly man who is alert, in no distress. HEENT: Head atraumatic, normocephalic. Sclerae anicteric. Buccal mucosa dry. NECK: Supple. CHEST: Rise symmetrical. Breath sounds clear. HEART: S1, S2. ABDOMEN: Soft. Bowel tones present. EXTREMITIES: Left upper extremity AV fistula patent. ASSESSMENT: 1. Polymicrobial bacteremia, etiology unclear 2. End-stage renal disease, hemodialysis dependent. 3. Diabetes. 4. Hypertension. PLAN: The patient remains hemodynamically stable. Repeat bld cx 12/26 negative, 2D echo revealed no vegetations. The patient is on appropriate antimicrobials. Pending WBC labeled nuclear scan [facility] staff Problems: Consultation Date/Type/Reason Admit Date/Time December 23, 2016 at 15:25 Type of Consultation: ID Exam/Review of Systems Vital Signs Vitals Vital Signs Date Time Temp Pulse Resp B/P Pulse Ox O2 Delivery O2 Flow Rate FiO2 12/29/16 07:53 97.4 65 20 147/66 98 Intake and Output 12/28/16 12/28/16 12/29/16 15:00 23:00 07:00 Intake Total 200 ml 1090 ml 720 ml Output Total 250 ml Balance 200 ml 840 ml 720 ml Results Result Diagram: 12/29/16 0540 12/29/16 0540 Results 24 hrs Laboratory Tests Test 12/28/16 17:22 12/28/16 21:25 12/29/16 05:40 12/29/16 08:08 Bedside Glucose 134 134 91 White Blood Count 9.7 Red Blood Count 2.71 L Hemoglobin 8.6 L Hematocrit 27.6 L Mean Corpuscular Volume 101.8 H Mean Corpuscular Hemoglobin 31.7 Mean Corpuscular Hemoglobin Concent 31.2 L Red Cell Distribution Width 14.5 Platelet Count 323 Mean Platelet Volume 9.8 Neutrophils % 77.5 H Lymphocytes % 9.1 L Monocytes % 10.3 Eosinophils % 2.2 Basophils % 0.3 Nucleated Red Blood Cells % 0.0 Neutrophils # 7.5 Lymphocytes # 0.9 Monocytes # 1.0 H Eosinophils # 0.2 Basophils # 0.0 Nucleated Red Blood Cells # 0.0 Sodium Level 132 L Potassium Level 4.0 Chloride Level 94 L Carbon Dioxide Level 29 Anion Gap 13 Blood Urea Nitrogen 35 #H Creatinine 5.68 #H Glucose Level 86 # Calcium Level 8.4 Test 12/29/16 12:02 Bedside Glucose 141 Medications Medications Current Medications Amlodipine Besylate (Norvasc) 10 mg DAILY PO Last administered on 12/29/16 08: 24; Admin Dose 10 MG; Start 12/24/16 at 09:00 Atorvastatin Calcium (Lipitor) 40 mg QHS PO Last administered on 12/28/16 21:24 ; Admin Dose 40 MG; Start 12/23/16 at 21:00 Citalopram Hydrobromide (Celexa) 20 mg DAILY PO Last administered on 12/29/16 08:23; Admin Dose 20 MG; Start 12/24/16 at 09:00 Clopidogrel Bisulfate (plaVIX) 75 mg DAILY PO Last administered on 12/29/16 08: 23; Admin Dose 75 MG; Start 12/24/16 at 09:00 Insulin Glargine (Lantus) 20 unit QAM SC Last administered on 12/29/16 08:19; Admin Dose 20 UNIT; Start 12/24/16 at 09:00 Labetalol HCl (Normodyne) 200 mg BID PO Last administered on 12/29/16 08:24; Admin Dose 200 MG; Start 12/23/16 at 21:00 Terazosin HCl (Hytrin) 2 mg HS PO Last administered on 12/28/16 21:26; Admin Dose 2 MG; Start 12/23/16 at 21:00 Tramadol HCl (Ultram) 50 mg Q8 PRN PO PAIN; Start 12/23/16 at 17:30 Docusate Sodium (Colace) 100 mg Q12H PRN PO CONSTIPATION; Start 12/23/16 at 17: 30 Magnesium Hydroxide (Milk Of Mag) 30 ml DAILY PRN PO CONSTIPATION; Start at 17:30 Bisacodyl (Dulcolax) 5 mg DAILY PRN PO CONSTIPATION; Start 12/23/16 at 17:30 Bisacodyl (Dulcolax Supp) 10 mg DAILY PRN [place] CONSTIPATION; Start 12/23/16 at 17 :30 Calcium Carbonate (Tums) 500 mg QID PO Last administered on 12/29/16 12:00; Admin Dose 500 MG; Start 12/23/16 at 21:00 Miscellaneous Information 1 ea NOTE XX ; Start 12/23/16 at 17:30 Glucose (Glutose) 15 gm Q15M PRN PO DECREASED GLUCOSE; Start 12/23/16 at 17:30 Glucose (Glutose) 22.5 gm Q15M PRN PO DECREASED GLUCOSE; Start 12/23/16 at 17: 30 Dextrose (D50w Syringe) 25 ml Q15M PRN IV DECREASED GLUCOSE; Start 12/23/16 at 17:30 Dextrose (D50w Syringe) 50 ml Q15M PRN IV DECREASED GLUCOSE; Start 12/23/16 at 17:30 Glucagon (Glucagen) 1 mg Q15M PRN IM DECREASED GLUCOSE; Start 12/23/16 at 17:30 Glucose (Glutose) 15 gm Q15M PRN BUCCAL DECREASED GLUCOSE; Start 12/23/16 at 17 :30 Acetaminophen/ Hydrocodone Bitart ([place] (5/325)) 1 tab Q4H PRN PO PAIN LEVEL 6 -10 Last administered on 12/24/16 15:35; Admin Dose 1 TAB; Start 12/23/16 at 19: 00 Hydromorphone HCl (Dilaudid) 0.5 mg Q4H PRN IV PAIN LEVEL 7-10 Last administered on 12/24/16 00:48; Admin Dose 0.5 MG; Start 12/23/16 at 19:00 Vancomycin HCl (Vanco Iv Per Pharmacy) PER PHARMACY DOSING NOTE XX ; Start at 10:00 Heparin Sodium (Porcine) (Heparin (5000 Units/0.5 ml)) 5,000 unit Q12 SC Last administered on 12/29/16 08:30; Admin Dose 5,000 UNIT; Start 12/24/16 at 21:00 Epoetin [place] (Epogen (Esrd)) 10,000 units MoWeFr@17 SC Last administered on 12/28 17:17; Admin Dose 10,000 UNITS; Start 12/25/16 at 17:00 Baclofen (Lioresal) 5 mg TID PRN PO HICCUPS Last administered on 12/26/16 21:24 ; Admin Dose 5 MG; Start 12/25/16 at 14:00 Al Hydrox/Mg Hydrox/Simethicone (Mag-Al Plus) 30 ml QID PRN PO HEARTBURN; Start 12/28/16 at 16:30 ALDA BARBER NP Dec 29, 2016 13:57
--- NOTE | 2016-12-29 16:04 | RADRPT ---
PROCEDURE: Indium-111 labeled white blood cell scan CLINICAL INDICATION: 71 -year-old patient with fever and leukocytosis. TECHNIQUE: Following the intravenous injection of 0.45 mCi of Indium-111 labeled white blood cells , whole body anterior and posterior planar images were obtained along with spot views of the chest a nd upper extremities bilaterally 24 hours post injection. COMPARISON: No prior indium scans. FINDINGS: Low-level diffusely increased activity is seen in the lung foster bilaterally, which is likely relat ed to the technical aspect of the white blood cell preparation. No other definite abnormal areas of increased activity are seen in the study, including visualized p ortions of the head and neck, chest, abdomen, pelvis and visualized portions of the upper and lower extremities bilaterally. Physiologic uptake is noted in the liver and spleen. IMPRESSION: 1. No definite abnormal focal areas of increased activity a left upper extremity and elsewhere in t he remainder of the body. 2. Very low level diffuse increase in uptake in both lungs likely related to the technical aspects of the white blood cell preparation. RPTAT: HH .Missy Vora MD, MD Date Time Electronically viewed and signed by .Missy Vora MD, MD on 12/29/2016 16:04 .L/
[2016-12-29 19:24] VITALS: BP 153/74; RESP 20
[2016-12-29] MEDS: ATORVASTATIN 40 MG TAB PO SCH (20:26)
[2016-12-29] MEDS: TERAZOSIN 2 MG CAP PO SCH (20:27)
[2016-12-30] VITALS (8 sets, daily range): BP systolic 122–158; BP diastolic 63–77; PULSE 62–69; RESP 16
--- NOTE | 2016-12-30 08:08 | CONS ---
Date/Time of Note Date/Time of Note DATE: 12/30/16 TIME: 08:04 Assessment/Plan Assessment/Plan Chief Complaint/Hosp Course 1. End-stage renal disease. He is having hemodialysis treatment now . His routine hemodialysis schedule is Wednesday. 2. He is without pain. His venous Dopplers of his leg were both negative for DVT. 3. Fever has resolved. He was growing several organisms from blood cultures done on admission. Repeat blood cultures , one has been positive for staph . He is on appropriate antibiotics. He is having an infection workup to try and determine the source of his infection.WBC scan does not show a source of infection . 4. Right CVA with left hemiparesis in 2012 5. Hypertension 6. Hyperlipidemia 7. Anemia, I will start Epogen. 8. Hiccups, I will start baclofen as needed. Problems: Consultation Date/Type/Reason Admit Date/Time December 23, 2016 at 15:25 Type of Consultation: ID [id number] HR Interval Summary Free Text/Dictation He is now having a hemodialysis treatment . He has no complaints . Constitutional: improved, no complaints Exam/Review of Systems Vital Signs Vitals Vital Signs Date Time Temp Pulse Resp B/P Pulse Ox O2 Delivery O2 Flow Rate FiO2 12/29/16 19:24 98.9 62 20 153/74 93 Intake and Output 12/29/16 12/29/16 12/30/16 15:00 23:00 07:00 Intake Total 1320 ml Output Total 800 ml Balance 520 ml Exam Constitutional: alert, frail, oriented Psych: no complaints Respiratory: clear to auscultation, normal air movement Cardiovascular: regular rate and rhythm Gastrointestinal: non-tender, soft Musculoskeletal: nl extremities to inspection Results Result Diagram: 12/29/16 0540 12/29/16 0540 Results 24 hrs Laboratory Tests Test 12/29/16 08:08 12/29/16 12:02 12/29/16 17:16 12/29/16 20:25 Bedside Glucose 91 141 129 138 Medications Medications Current Medications Amlodipine Besylate (Norvasc) 10 mg DAILY PO Last administered on 12/29/16 08: 24; Admin Dose 10 MG; Start 12/24/16 at 09:00 Atorvastatin Calcium (Lipitor) 40 mg QHS PO Last administered on 12/29/16 20:26 ; Admin Dose 40 MG; Start 12/23/16 at 21:00 Citalopram Hydrobromide (Celexa) 20 mg DAILY PO Last administered on 12/29/16 08:23; Admin Dose 20 MG; Start 12/24/16 at 09:00 Clopidogrel Bisulfate (plaVIX) 75 mg DAILY PO Last administered on 12/29/16 08: 23; Admin Dose 75 MG; Start 12/24/16 at 09:00 Insulin Glargine (Lantus) 20 unit QAM SC Last administered on 12/29/16 08:19; Admin Dose 20 UNIT; Start 12/24/16 at 09:00 Labetalol HCl (Normodyne) 200 mg BID PO Last administered on 12/29/16 20:26; Admin Dose 200 MG; Start 12/23/16 at 21:00 Terazosin HCl (Hytrin) 2 mg HS PO Last administered on 12/29/16 20:27; Admin Dose 2 MG; Start 12/23/16 at 21:00 Tramadol HCl (Ultram) 50 mg Q8 PRN PO PAIN; Start 12/23/16 at 17:30 Docusate Sodium (Colace) 100 mg Q12H PRN PO CONSTIPATION; Start 12/23/16 at 17: 30 Magnesium Hydroxide (Milk Of Mag) 30 ml DAILY PRN PO CONSTIPATION; Start at 17:30 Bisacodyl (Dulcolax) 5 mg DAILY PRN PO CONSTIPATION; Start 12/23/16 at 17:30 Bisacodyl (Dulcolax Supp) 10 mg DAILY PRN [place] CONSTIPATION; Start 12/23/16 at 17 :30 Calcium Carbonate (Tums) 500 mg QID PO Last administered on 12/29/16 20:26; Admin Dose 500 MG; Start 12/23/16 at 21:00 Miscellaneous Information 1 ea NOTE XX ; Start 12/23/16 at 17:30 Glucose (Glutose) 15 gm Q15M PRN PO DECREASED GLUCOSE; Start 12/23/16 at 17:30 Glucose (Glutose) 22.5 gm Q15M PRN PO DECREASED GLUCOSE; Start 12/23/16 at 17: 30 Dextrose (D50w Syringe) 25 ml Q15M PRN IV DECREASED GLUCOSE; Start 12/23/16 at 17:30 Dextrose (D50w Syringe) 50 ml Q15M PRN IV DECREASED GLUCOSE; Start 12/23/16 at 17:30 Glucagon (Glucagen) 1 mg Q15M PRN IM DECREASED GLUCOSE; Start 12/23/16 at 17:30 Glucose (Glutose) 15 gm Q15M PRN BUCCAL DECREASED GLUCOSE; Start 12/23/16 at 17 :30 Acetaminophen/ Hydrocodone Bitart ([place] (5/325)) 1 tab Q4H PRN PO PAIN LEVEL 6 -10 Last administered on 12/24/16 15:35; Admin Dose 1 TAB; Start 12/23/16 at 19: 00 Hydromorphone HCl (Dilaudid) 0.5 mg Q4H PRN IV PAIN LEVEL 7-10 Last administered on 12/24/16 00:48; Admin Dose 0.5 MG; Start 12/23/16 at 19:00 Vancomycin HCl (Vanco Iv Per Pharmacy) PER PHARMACY DOSING NOTE XX ; Start at 10:00 Heparin Sodium (Porcine) (Heparin (5000 Units/0.5 ml)) 5,000 unit Q12 SC Last administered on 12/29/16 20:35; Admin Dose 5,000 UNIT; Start 12/24/16 at 21:00 Epoetin Spencer (Epogen (Esrd)) 10,000 units MoWeFr@17 SC Last administered on 12/28 17:17; Admin Dose 10,000 UNITS; Start 12/25/16 at 17:00 Baclofen (Lioresal) 5 mg TID PRN PO HICCUPS Last administered on 12/26/16 21:24 ; Admin Dose 5 MG; Start 12/25/16 at 14:00 Al Hydrox/Mg Hydrox/Simethicone (Mag-Al Plus) 30 ml QID PRN PO HEARTBURN; Start 12/28/16 at 16:30 JOSE MARIA RIOS MD Dec 30, 2016 08:08
[2016-12-30] MEDS: INSULIN ASPART [NOVOLOG] 3 ML PEN SC SCH ×2 (08:15→12:42)
[2016-12-30] MEDS: CALCIUM CARBONATE 500 MG CHEW TAB PO SCH ×2 (09:35→12:24)
[2016-12-30] MEDS: CITALOPRAM 20 MG TAB PO SCH (09:35)
[2016-12-30] MEDS: CLOPIDOGREL 75 MG TAB PO SCH (09:35)
[2016-12-30] MEDS: LABETALOL 200 MG TAB PO SCH (09:39)
[2016-12-30] MEDS: AMLODIPINE 10 MG TAB PO SCH (09:39)
[2016-12-30] MEDS: SEVELAMER CARBONATE 0.8 GM PKT PO SCH ×2 (09:39→12:24)
[2016-12-30] MEDS: HEPARIN 5,000 UNIT/0.5 ML VIAL SC SCH (09:45)
[2016-12-30] MEDS: INSULIN GLARGINE [LANtus] 3 ML PEN SC SCH (09:45)
--- NOTE | 2016-12-30 13:02 | CONS ---
Date/Time of Note Date/Time of Note DATE: 12/30/16 TIME: 13:00 Assessment/Plan Assessment/Plan Chief Complaint/Hosp Course SUBJECTIVE: Patient is sleeping, s/p HD, no fevers overnight. MICROBIOLOGY: Blood cultures since admission grew Staphylococcus aureus and streptococcus species. INDWELLINGS: The patient has a left upper extremity AV fistula. ANTIMICROBIALS: IV vancomycin. DIAGNOSTICS: Chest x-ray on admission revealed moderate cardiomegaly. Extremity venous study revealed no evidence of DVT. PHYSICAL EXAMINATION: GENERAL: Fragile, well-developed, elderly man who is in no distress. HEENT: Head atraumatic, normocephalic. Sclerae anicteric. Buccal mucosa dry. NECK: Supple. CHEST: Rise symmetrical. Breath sounds clear. HEART: S1, S2. ABDOMEN: Soft. Bowel tones present. EXTREMITIES: Left upper extremity AV fistula patent. ASSESSMENT: 1. Polymicrobial bacteremia, etiology unclear 2. End-stage renal disease, hemodialysis dependent. 3. Diabetes. 4. Hypertension. PLAN: The patient remains hemodynamically stable. Repeat bld cx 12/26 negative, 2D echo revealed no vegetations, WBC nuclear scan negative. Recommend dc on IV Vanco post HD for 2 weeks. DW staff Problems: Consultation Date/Type/Reason Admit Date/Time December 23, 2016 at 15:25 Type of Consultation: ID Exam/Review of Systems Vital Signs Vitals Vital Signs Date Time Temp Pulse Resp B/P Pulse Ox O2 Delivery O2 Flow Rate FiO2 12/30/16 09:00 98.5 69 16 158/63 98 Nasal Cannula 2.0 Intake and Output 12/29/16 12/29/16 12/30/16 15:00 23:00 07:00 Intake Total 1320 ml Output Total 800 ml Balance 520 ml Results Result Diagram: 12/29/16 0540 12/29/16 0540 Results 24 hrs Laboratory Tests Test 12/29/16 17:16 12/29/16 20:25 12/30/16 08:04 12/30/16 12:01 Bedside Glucose 129 138 125 170 Medications Medications Current Medications Amlodipine Besylate (Norvasc) 10 mg DAILY PO Last administered on 12/30/16 09: 39; Admin Dose 10 MG; Start 12/24/16 at 09:00 Atorvastatin Calcium (Lipitor) 40 mg QHS PO Last administered on 12/29/16 20:26 ; Admin Dose 40 MG; Start 12/23/16 at 21:00 Citalopram Hydrobromide (Celexa) 20 mg DAILY PO Last administered on 12/30/16 09:35; Admin Dose 20 MG; Start 12/24/16 at 09:00 Clopidogrel Bisulfate (plaVIX) 75 mg DAILY PO Last administered on 12/30/16 09: 35; Admin Dose 75 MG; Start 12/24/16 at 09:00 Insulin Glargine (Lantus) 20 unit QAM SC Last administered on 12/30/16 09:45; Admin Dose 20 UNIT; Start 12/24/16 at 09:00 Labetalol HCl (Normodyne) 200 mg BID PO Last administered on 12/30/16 09:39; Admin Dose 200 MG; Start 12/23/16 at 21:00 Terazosin HCl (Hytrin) 2 mg HS PO Last administered on 12/29/16 20:27; Admin Dose 2 MG; Start 12/23/16 at 21:00 Tramadol HCl (Ultram) 50 mg Q8 PRN PO PAIN; Start 12/23/16 at 17:30 Docusate Sodium (Colace) 100 mg Q12H PRN PO CONSTIPATION; Start 12/23/16 at 17: 30 Magnesium Hydroxide (Milk Of Mag) 30 ml DAILY PRN PO CONSTIPATION; Start at 17:30 Bisacodyl (Dulcolax) 5 mg DAILY PRN PO CONSTIPATION; Start 12/23/16 at 17:30 Bisacodyl (Dulcolax Supp) 10 mg DAILY PRN [place] CONSTIPATION; Start 12/23/16 at 17 :30 Calcium Carbonate (Tums) 500 mg QID PO Last administered on 12/30/16 12:24; Admin Dose 500 MG; Start 12/23/16 at 21:00 Miscellaneous Information 1 ea NOTE XX ; Start 12/23/16 at 17:30 Glucose (Glutose) 15 gm Q15M PRN PO DECREASED GLUCOSE; Start 12/23/16 at 17:30 Glucose (Glutose) 22.5 gm Q15M PRN PO DECREASED GLUCOSE; Start 12/23/16 at 17: 30 Dextrose (D50w Syringe) 25 ml Q15M PRN IV DECREASED GLUCOSE; Start 12/23/16 at 17:30 Dextrose (D50w Syringe) 50 ml Q15M PRN IV DECREASED GLUCOSE; Start 12/23/16 at 17:30 Glucagon (Glucagen) 1 mg Q15M PRN IM DECREASED GLUCOSE; Start 12/23/16 at 17:30 Glucose (Glutose) 15 gm Q15M PRN BUCCAL DECREASED GLUCOSE; Start 12/23/16 at 17 :30 Acetaminophen/ Hydrocodone Bitart ([place] (5/325)) 1 tab Q4H PRN PO PAIN LEVEL 6 -10 Last administered on 12/24/16 15:35; Admin Dose 1 TAB; Start 12/23/16 at 19: 00 Hydromorphone HCl (Dilaudid) 0.5 mg Q4H PRN IV PAIN LEVEL 7-10 Last administered on 12/24/16 00:48; Admin Dose 0.5 MG; Start 12/23/16 at 19:00 Vancomycin HCl (Vanco Iv Per Pharmacy) PER PHARMACY DOSING NOTE XX ; Start at 10:00 Heparin Sodium (Porcine) (Heparin (5000 Units/0.5 ml)) 5,000 unit Q12 SC Last administered on 12/30/16 09:45; Admin Dose 5,000 UNIT; Start 12/24/16 at 21:00 Epoetin Spencer (Epogen (Esrd)) 10,000 units MoWeFr@17 SC Last administered on 12/28 17:17; Admin Dose 10,000 UNITS; Start 12/25/16 at 17:00 Baclofen (Lioresal) 5 mg TID PRN PO HICCUPS Last administered on 12/26/16 21:24 ; Admin Dose 5 MG; Start 12/25/16 at 14:00 Al Hydrox/Mg Hydrox/Simethicone (Mag-Al Plus) 30 ml QID PRN PO HEARTBURN; Start 12/28/16 at 16:30 ALDA BARBER NP Dec 30, 2016 13:02
--- NOTE | 2016-12-30 14:37 | PN ---
Date/Time of Note Date/Time of Note DATE: 12/30/16 TIME: 14:36 Assessment/Plan VTE Prophylaxis VTE Prophylaxis Intervention: LMWH Lines/Catheters IV Catheter Type (from [facility]): Peripheral IV Urinary Cath still in place: No Assessment/Plan Chief Complaint/Hosp Course S: 12/28 no fever. Tolerating diet. No ill contacts. No recent dental work. 12/29 no distress, no injury or events 12/30 no events. O: Vss PE No pallor Reg; positive murmur Clear Benign No edema/lymphadenopathy. A/P 1. Sepsis/staph aureus. Source? dc home with 2 weeks IV vancomycin postdialysis. 2. ESRD MWF 3. Diabetes/metabolic syndrome/dyslipidemia/hypertension 4. Chr cad; old MA? 5. Depression 6. Previous left-sided stroke 7. Anemia anemia 8. Aortic stenosis-mild 9. Secondary pulmonary hypertension 10.Osteoporosis Problems: Exam/Review of Systems Vital Signs Vitals Vital Signs Date Time Temp Pulse Resp B/P Pulse Ox O2 Delivery O2 Flow Rate FiO2 12/30/16 09:00 98.5 69 16 158/63 98 Nasal Cannula 2.0 Intake and Output 12/29/16 12/29/16 12/30/16 15:00 23:00 07:00 Intake Total 1320 ml Output Total 800 ml Balance 520 ml Results Result Diagram: 12/29/16 0540 12/29/16 0540 Results 24 hrs Laboratory Tests Test 12/29/16 17:16 12/29/16 20:25 12/30/16 08:04 12/30/16 12:01 Bedside Glucose 129 138 125 170 Medications Medications Current Medications Amlodipine Besylate (Norvasc) 10 mg DAILY PO Last administered on 12/30/16 09: 39; Admin Dose 10 MG; Start 12/24/16 at 09:00 Atorvastatin Calcium (Lipitor) 40 mg QHS PO Last administered on 12/29/16 20:26 ; Admin Dose 40 MG; Start 12/23/16 at 21:00 Citalopram Hydrobromide (Celexa) 20 mg DAILY PO Last administered on 12/30/16 09:35; Admin Dose 20 MG; Start 12/24/16 at 09:00 Clopidogrel Bisulfate (plaVIX) 75 mg DAILY PO Last administered on 12/30/16 09: 35; Admin Dose 75 MG; Start 12/24/16 at 09:00 Insulin Glargine (Lantus) 20 unit QAM SC Last administered on 12/30/16 09:45; Admin Dose 20 UNIT; Start 12/24/16 at 09:00 Labetalol HCl (Normodyne) 200 mg BID PO Last administered on 12/30/16 09:39; Admin Dose 200 MG; Start 12/23/16 at 21:00 Terazosin HCl (Hytrin) 2 mg HS PO Last administered on 12/29/16 20:27; Admin Dose 2 MG; Start 12/23/16 at 21:00 Tramadol HCl (Ultram) 50 mg Q8 PRN PO PAIN; Start 12/23/16 at 17:30 Docusate Sodium (Colace) 100 mg Q12H PRN PO CONSTIPATION; Start 12/23/16 at 17: 30 Magnesium Hydroxide (Milk Of Mag) 30 ml DAILY PRN PO CONSTIPATION; Start at 17:30 Bisacodyl (Dulcolax) 5 mg DAILY PRN PO CONSTIPATION; Start 12/23/16 at 17:30 Bisacodyl (Dulcolax Supp) 10 mg DAILY PRN [place] CONSTIPATION; Start 12/23/16 at 17 :30 Calcium Carbonate (Tums) 500 mg QID PO Last administered on 12/30/16 12:24; Admin Dose 500 MG; Start 12/23/16 at 21:00 Miscellaneous Information 1 ea NOTE XX ; Start 12/23/16 at 17:30 Glucose (Glutose) 15 gm Q15M PRN PO DECREASED GLUCOSE; Start 12/23/16 at 17:30 Glucose (Glutose) 22.5 gm Q15M PRN PO DECREASED GLUCOSE; Start 12/23/16 at 17: 30 Dextrose (D50w Syringe) 25 ml Q15M PRN IV DECREASED GLUCOSE; Start 12/23/16 at 17:30 Dextrose (D50w Syringe) 50 ml Q15M PRN IV DECREASED GLUCOSE; Start 12/23/16 at 17:30 Glucagon (Glucagen) 1 mg Q15M PRN IM DECREASED GLUCOSE; Start 12/23/16 at 17:30 Glucose (Glutose) 15 gm Q15M PRN BUCCAL DECREASED GLUCOSE; Start 12/23/16 at 17 :30 Acetaminophen/ Hydrocodone Bitart ([place] (5/325)) 1 tab Q4H PRN PO PAIN LEVEL 6 -10 Last administered on 12/24/16 15:35; Admin Dose 1 TAB; Start 12/23/16 at 19: 00 Hydromorphone HCl (Dilaudid) 0.5 mg Q4H PRN IV PAIN LEVEL 7-10 Last administered on 12/24/16 00:48; Admin Dose 0.5 MG; Start 12/23/16 at 19:00 Vancomycin HCl (Vanco Iv Per Pharmacy) PER PHARMACY DOSING NOTE XX ; Start at 10:00 Heparin Sodium (Porcine) (Heparin (5000 Units/0.5 ml)) 5,000 unit Q12 SC Last administered on 12/30/16 09:45; Admin Dose 5,000 UNIT; Start 12/24/16 at 21:00 Epoetin Spencer (Epogen (Esrd)) 10,000 units MoWeFr@17 SC Last administered on 12/28 17:17; Admin Dose 10,000 UNITS; Start 12/25/16 at 17:00 Baclofen (Lioresal) 5 mg TID PRN PO HICCUPS Last administered on 12/26/16 21:24 ; Admin Dose 5 MG; Start 12/25/16 at 14:00 Al Hydrox/Mg Hydrox/Simethicone (Mag-Al Plus) 30 ml QID PRN PO HEARTBURN; Start 12/28/16 at 16:30 Miscellaneous Information (*Rx Drug Level Order Reminder*) RANDOM VANCOMYCIN LEVEL ... ONCE ONCE XX ; Start 12/31/16 at 05:00; Stop 12/31/16 at 05:01 TANVI VALDES MD Dec 30, 2016 14:37
--- NOTE | 2016-12-30 14:40 | PDOCDIS ---
Discharge Instructions DIAGNOSIS Discharge Diagnosis: infection CONDITION Patient Condition: Good HOME CARE INSTRUCTIONS: Special Diet: Carb Controlled Diet, Low Chol., Low Fat Diet ACTIVITY: Activity Restrictions: Slowly Increase Activity Do not Drive FOLLOW UP/APPOINTMENTS Appointments Appt Dr Sheffield -3wks [employer] 2wks PCP 1wk continue dialysis MWF -Vancomycin after dialysis for 2 weeks. TANVI VALDES MD Dec 30, 2016 14:40
--- NOTE | 2016-12-30 15:29 | DS ---
DATE OF ADMISSION: 12/23/2016 DATE OF DISCHARGE: 12/30/2016 PRIMARY CARE PHYSICIAN: Unknown. LABORATORY ASST: Dr. Rios and Dr. Vann. DIAGNOSIS ON ADMISSION: Bacteremia. DIAGNOSES ON DISCHARGE: 1. Staphylococcal sepsis 2. End-stage renal disease. 3. Diabetes/metabolic syndrome. 4. Dyslipidemia. 5. Hypertension. 6. Possible chronic coronary artery disease, old myocardial infarction status. 7. Depression. 8. Previous left stroke. 9. Anemia. 10. Aortic stenosis, mild. 11. Osteoporosis. 12. Secondary pulmonary hypertension. HOSPITAL COURSE: A 71-year-old gentleman admitted with abnormal blood cultures. He was found to gutierrez ve Staphylococcus aureus, pansensitive, improved with antibiotics. Followup blood cultures appear t o be showing resolution of the infection. No end organ damage. The patient is stable and fit for discharge. He will finish vancomycin with dialysis over the next 2 weeks. The source is actually f airly unknown. No evidence of cellulitis. No evidence of recent dental work. A 2D echo did not sh ow any acute process. I am suspecting that there is transient bacteremia or organisms through his A V fistula. Due to his comorbidities, recommend advance care planning be established. His sugars are fairly sta ble. DISCHARGE PLAN: Home. FOLLOWUP: Follow up with Dr. Rios in [address] Vann in 2 to 3 weeks. DIET: 1800 ADA. ACTIVITY: No driving. CODE STATUS: FULL. CONDITION: Stable. BARRIERS TO DISCHARGE: None. PENDING TESTS: None. FUNCTIONAL STATUS: The patient awake, alert, agrees with plan of care. ALLERGIES: NO KNOWN DRUG ALLERGIES. REASON FOR ADMISSION: Sepsis. IMAGING STUDIES: A 2-D echo does not show any acute process, EF of 65, mild concentric LVH, mild ao rtic stenosis, moderate pulmonary hypertension, PA pressure 55. Moderate TR suspecting due to diast olic dysfunction. LABORATORIES: White cell scan shows no definitive areas of increased activity. Venous ultrasound of bilateral lower extremities does not show any DVT. Chest x-ray: No acute process. Moderate cardiomegaly, mild congestion. X-ray, left humerus shows osteoporosis stable. No fracture destruction. Blood cultures on the read as Staphylococcal au reus sensitive to all except for penicillin G. The patient's blood cultures on the have been ne gative for 4 days. White cell count of 9, hemoglobin and hematocrit of 8 and 27, MCV 101, platelets of 323. ESR 103, INR 1.1. Blood sugars less than 170. Sodium 132, potassium 4, chloride 94, bica rbonate 29, BUN of 35, creatinine 5.6, glucose of 80 and alkaline phosphatase of 221. AST and ALT o f 44 and 61, bilirubin 0, protein of 7, albumin of 4 and lactic acid 0.8. STOPPED MEDICATIONS: None. CONTINUED MEDICATIONS: 1. Norvasc 10. 2. Lipitor 40. 3. Celexa 20. 4. Plavix 75. 5. Lantus 20. 6. Labetalol 200 b.i.d. 7. NitroQuick as needed. 8. Propranolol 40. 9. Renvela 800. 10. Terazosin 2. 11. Ultram 50 q. 8h. p.r.n. pain. ALTERED MEDICATIONS: None. NEW MEDICATIONS: 1. Tylenol as needed 2. Vancomycin dosed by pharmacy for 2 weeks post-dialysis Wednesday, Wednesday, Wednesday. Dictated By: TANVI VALDES MD AC/NTS Conf#: [id number] DID#: [id number] CC: JOSE MARIA RIOS MD; KALYN VANN MD;*[facility]*
== END 2016-12-30 16:35 | disposition home or self-care (01) | DRG 314 ==
LOC: E/R 13:07 → MS2 15:25
PROVIDERS: ADMIT Internal Medicine; ATTEND Internal Medicine
PROC: 5A1D60Z (ICD-10-PCS; principal; 2016-12-23)
DX: T82.7XXA Infection and inflammatory reaction due to other cardiac and vascular devices, implants and grafts, initial encounter (principal); A41.2 Sepsis due to unspecified staphylococcus; N18.6 End stage renal disease; A40.9 Streptococcal sepsis, unspecified; I12.0 Hypertensive chronic kidney disease with stage 5 chronic kidney disease or end stage renal disease; I69.954 Hemiplegia and hemiparesis following unspecified cerebrovascular disease affecting left non-dominant side; E11.22 Type 2 diabetes mellitus with diabetic chronic kidney disease; I25.10 Atherosclerotic heart disease of native coronary artery without angina pectoris; M79.602 Pain in left arm; F32.9 Major depressive disorder, single episode, unspecified; Z99.2 Dependence on renal dialysis; M25.512 Pain in left shoulder; M79.605 Pain in left leg; M79.604 Pain in right leg; Z79.02 Long term (current) use of antithrombotics/antiplatelets; Z79.4 Long term (current) use of insulin; E87.5 Hyperkalemia; I70.235 Atherosclerosis of native arteries of right leg with ulceration of other part of foot; L97.519 Non-pressure chronic ulcer of other part of right foot with unspecified severity; E78.5 Hyperlipidemia, unspecified; D64.9 Anemia, unspecified; R06.6 Hiccough; I15.9 Secondary hypertension, unspecified; M81.0 Age-related osteoporosis without current pathological fracture
CPT/HCPCS: 36415; 71010; 73060; 78806; 80048; 80053; 80202; 82150; 82306; 82550; 82553; 82962; 83605; 83690; 84100; 84484; 85025; 85610; 85651; 85730; 86140; 87040; 90935; 93005; 93306; 93970; 96374; 96375; 96376; A9570; J0692; J1170; J1644; J1650; J1815; J2270; J2405; J3370; J7050; Q4081